=== PATIENT | female | born 1965 | race Caucasian/White ===

== ENCOUNTER 2017-04-22 14:01 | Emergency (ER) | payer MEDICARE, OTHER ==
[2017-04-22 14:17] VITALS: BP 101/50
--- NOTE | 2017-04-22 15:14 | RAD ---
Indication: Right foot pain. 3 views of the right foot demonstrates no fracture. No other bone or joint abnormality is identified. IMPRESSION: No fracture of the right foot is noted.
--- NOTE | 2017-04-22 15:35 | UC ---
Lower Extremity/Ankle HPI - HPI Summary HPI Summary: Fell down the stairs pain in right foot-no specific area of point tenderness - History of Current Complaint Hx Obtained From: Patient ?: No Onset/Duration: Sudden Onset, Lasting Days - 1 Severity Initially: Mild Severity Currently: Mild Pain Intensity: 4 Pain Scale Used: 0-10 Numeric Aggravating Factor(s): Standing, Ambulation Alleviating Factor(s): Rest, Elevation Able to Bear Weight: Yes <Clara Gil - Last Filed: 04/22/17 15:30> <Danitza Brooks - Last Filed: 04/22/17 16:29> - History of Current Complaint Chief Complaint: UCLowerExtremity Stated Complaint: FOOT INJURY Time Seen by Provider: 04/22/17 14:45 - Allergies/Home Medications Allergies/Adverse Reactions: Allergies Allergy/AdvReac Type Severity Reaction Status Date / Time No Known Allergies Allergy Verified 11/04/15 13:37 Home Medications: Home Medications Levothyroxine TAB* [Synthroid 88 MCG TAB*] 88 mcg PO DAILY 04/22/17 [History Confirmed 04/22/17] PMH/Surg Hx/FS Hx/Imm Hx Previously Healthy: No Endocrine History: Hypothyroidism Psychological History: Anxiety, Depression - Surgical History Surgical History: None - Family History Known Family History: Positive: None - Social History Occupation: Disabled Lives: With Family Alcohol Use: None Substance Use Type: None Smoking Status (MU): Never Smoked Tobacco <Clara Gil - Last Filed: 04/22/17 15:30> Review of Systems Constitutional: Negative Skin: Negative Eyes: Negative ENT: Negative Respiratory: Negative Cardiovascular: Negative Gastrointestinal: Negative Genitourinary: Negative Motor: Negative Neurovascular: Negative Musculoskeletal: Arthralgia - right foot Neurological: Negative Psychological: Negative Is Patient Immunocompromised?: No All Other Systems Reviewed And Are Negative: Yes <Clara Gil - Last Filed: 04/22/17 15:30> Physical Exam Triage Information Reviewed: Yes Appearance: Well-Appearing, No Pain Distress, Well-Nourished Vital Signs: Initial Vital Signs Temp 98.8 F 04/22/17 14:12 Pulse 65 04/22/17 14:12 Resp 18 04/22/17 14:12 BP 101/50 04/22/17 14:12 Pulse Ox 100 04/22/17 14:12 Vital Signs Reviewed: Yes Eye Exam: Normal Eyes: Positive: Conjunctiva Clear ENT Exam: Normal ENT: Positive: Normal ENT inspection, Hearing grossly normal. Negative: Nasal congestion, Tonsillar swelling, Tonsillar exudate, Muffled voice, Hoarse voice Dental Exam: Normal Neck exam: Normal Neck: Positive: Supple, Nontender Respiratory Exam: Normal Respiratory: Positive: Chest non-tender, No respiratory distress, No accessory muscle use Cardiovascular Exam: Normal Cardiovascular: Positive: RRR, Pulses Normal, Brisk Capillary Refill Musculoskeletal Exam: Normal Musculoskeletal: Positive: Strength Intact, ROM Intact, No Edema Neurological Exam: Normal Neurological: Positive: Alert, Muscle Tone Normal Psychological Exam: Normal Psychological: Positive: Normal Response To Family Skin Exam: Normal <Clara Gil - Last Filed: 04/22/17 15:30> Vital Signs: Initial Vital Signs Temp 98.8 F 04/22/17 14:12 Pulse 65 04/22/17 14:12 Resp 18 04/22/17 14:12 BP 101/50 04/22/17 14:12 Pulse Ox 100 04/22/17 14:12 <Danitza Brooks - Last Filed: 04/22/17 16:29> Diagnostics - Radiology No standard instances Xray Interpretation: No Acute Changes Radiology Interpretation Completed By: ED Physician, Radiologist <Clara Gil - Last Filed: 04/22/17 15:30> Lower Extremity Course/Dx - Course Course Of Treatment: rice, sen, post op shoe, ibuprofen follow with ortho - Differential Dx/Diagnosis Provider Diagnoses: Right Foot Contusion <Clara Gil - Last Filed: 04/22/17 15:30> Discharge <Clara Gil - Last Filed: 04/22/17 15:30> <Danitza Brooks - Last Filed: 04/22/17 16:29> - Discharge Plan Condition: Stable Disposition: HOME Patient Education Materials: Ibuprofen (By mouth), Foot Contusion (ED), RICE Therapy (ED) Referrals: Jose Perry MD [Primary Care Provider] - If Needed Attestation Statement User Type: Provider - I was available for consult. This patient was seen by the JULI. The patient was not presented to, seen by, or examined by me. -Jonathon <Danitza Brooks - Last Filed: 04/22/17 16:29>
== END 2017-04-22 15:57 | disposition home or self-care (01) ==
LOC: UCEAST 14:01
DX: S90.31XA Contusion of right foot, initial encounter (principal); W10.9XXA Fall (on) (from) unspecified stairs and steps, initial encounter; Y93.9 Activity, unspecified; Y92.9 Unspecified place or not applicable; Y99.9 Unspecified external cause status; E03.9 Hypothyroidism, unspecified
CPT/HCPCS: 99213; G0463

== ENCOUNTER 2017-11-16 14:52 | Emergency (ER) | payer MEDICARE, OTHER ==
[2017-11-16 15:05] VITALS: BP 102/54
--- NOTE | 2017-11-16 15:11 | UC ---
Complaint Female HPI - HPI Summary HPI Summary: 52 y/o female PMHX DM and hypothyroidism presents to the urgent care c/o vaginal discharge w/ itchiness for the past week. Pt also states frequency on urination and she thinks she saw some blood in the urine yesterday. Pt states mild pelvic pressure. Pt denies fever, lower back pain, abdominal pain, N/V/D. Pt has not taking anything to alleviate symptoms. LMP: 2017. Pt states she doesn 't get her period for the past 18 months, so she thins is menopausal. Pt is not sexually active. Pt denies Hx of STD's. - History Of Current Complaint Chief Complaint: UCGU Stated Complaint: PERSONAL Time Seen by Provider: 11/16/17 15:09 Hx Obtained From: Patient Hx Last Menstrual Period: 2016 ?: No - Menopausal Onset/Duration: Gradual Onset, Lasting Weeks - 1, Still Present, Worse Since - yesterday Timing: Constant Severity Initially: Mild Severity Currently: Mild Pain Intensity: 1 - pelvic pressure Pain Scale Used: 0-10 Numeric Character: Not Applicable Aggravating Factor(s): Urination Alleviating Factor(s): Nothing Associated Signs And Symptoms: Positive: Vaginal Discharge. Negative: Genital Swelling, Genital Blisters - Risk Factors Ectopic Risk Factor: Negative - Allergies/Home Medications Allergies/Adverse Reactions: Allergies Allergy/AdvReac Type Severity Reaction Status Date / Time remeron Allergy See Comment Uncoded 11/16/17 15:06 Home Medications: Home Medications Ketoconazole 2 % CREAM (NF) [Nizoral 2% CREAM (NF)] 1 applic Q12HR PRN 11/16/17 [History Confirmed 11/16/17] buPROPion TAB* [Wellbutrin TAB*] 100 mg PO DAILY 11/16/17 [History Confirmed ] PMH/Surg Hx/FS Hx/Imm Hx Previously Healthy: Yes Endocrine History: Diabetes, Hypothyroidism Psychological History: Anxiety, Depression, Post Traumatic Stress Disorder - Surgical History Surgical History: None - Family History Known Family History: Positive: Hypertension - Social History Occupation: Employed Full-time Lives: With Family Alcohol Use: None Substance Use Type: None Smoking Status (MU): Never Smoked Tobacco Have You Smoked in the Last Year: No Review of Systems Constitutional: Negative Skin: Negative Eyes: Negative ENT: Negative Respiratory: Negative Cardiovascular: Negative Gastrointestinal: Negative Genitourinary: Frequency, Vaginal/Penile Itching, Vaginal/Penile Discharge Motor: Negative Neurovascular: Negative Musculoskeletal: Negative Neurological: Negative Psychological: Negative Is Patient Immunocompromised?: No All Other Systems Reviewed And Are Negative: Yes Physical Exam - Summary Physical Exam Summary: PHYSICAL EXAMINATION: Vital signs: reviewed General: well developed, well nourished female sitting in the examining table w /o any acute distress. Head: Normocephalic, no lesions. Eyes: PERRLA, EOM's full, conjunctiva clear, fundi grossly normal. Ears: EAC's clear, TM's normal. Nose: Mucosa normal, no obstruction. Throat: Clear, no exudates, no lesions. Neck: Supple, no masses, no thyromegaly, no bruits. Chest: Lungs clear, no rales, no rhonchi, no wheezes. Heart: RR, no murmurs, no rubs, no gallops. Abdomen: Soft, no tenderness, no masses, BS normal. : Normal, no lesions, no discharge, no hernias noted. Pelvic: I was assisted by nurse Ronel. External genitalia within normal limits. There is no lesions there is no masses noted. Speculum exam: unable to perform since Pt is afraid it will cause her pain since she hasn't have sexual intercourse in a long time. entrance of vagina w/ white vaginal discharge and mild erythema. Rectal: No lesions, no hemorrhoids, Back: Normal curvature, no tenderness. Extremities: FROM, no deformities, no edema, no erythema. Neuro: Physiological, no localizing findings. Skin: Normal, no rashes, no lesions noted. Triage Information Reviewed: Yes Vital Signs: Initial Vital Signs Temp 98.3 F 11/16/17 14:56 Pulse 63 11/16/17 14:56 Resp 16 11/16/17 14:56 BP 102/54 11/16/17 14:56 Pulse Ox 100 11/16/17 14:56 Complaint Female Dx - Course Course Of Treatment: 52 y/o female PMHX DM and hypothyroidism presents to the urgent care c/o vaginal discharge w/ itchiness for the past week. Pt also states frequency on urination and she thinks she saw some blood in the urine yesterday. Pt states mild pelvic pressure. Pt denies fever, lower back pain, abdominal pain, N/V/D. Pt has not taking anything to alleviate symptoms. LMP: 2017. Pt states she doesn't get her period for the past 18 months, so she thins is menopausal. Pt is not sexually active. Pt denies Hx of STD's. Hx obtained. Pelvic exam: I was assisted by nurse Ronel. External genitalia within normal limits. There is no lesions there is no masses noted. Speculum exam: unable to perform since Pt is afraid it will cause her pain since she hasn't have sexual intercourse in a long time. entrance of vagina w/ white vaginal discharge and mild erythema on examination. UA:negative. Pt Rx fluconazole and Metrogel vaginal cream for Vulvovaginal candidiasis and BV due to her white vaginal discharge and PMHX of DM. Pt understood and agreed with plan of care. - Differential Dx/Diagnosis Differential Diagnosis/HQI/PQRI: Cervicitis, Pelvic Inflammatory Disease, Renal Colic, Sexually Transmitted Disease, Ureteral Stone, Urinary Tract Infection Provider Diagnoses: 1- Vaginosis Discharge - Sign-Out/Discharge Documenting (check all that apply): Discharge/Admit/Transfer - D/c - Discharge Plan Condition: Stable Disposition: HOME Prescriptions: Fluconazole [Fluconazole 150 mg tab] 150 mg PO ONCE #1 tab metroNIDAZOLE VAGINAL 0.75%* 1 applic VAGINAL BEDTIME #1 tube Patient Education Materials: Bacterial Vaginosis (ED), Yeast Infection (ED) Referrals: Jose Perry MD [Primary Care Provider] - 3 Days Additional Instructions: 1- Please take fluconazole PO as directed 2- Use Metrogel as directed to alleviate Vaginosis 3--If not improvement of symptoms please return to the urgent care or f/u with your [facility]AD[facility]AKER for further treatment - Billing Disposition and Condition Condition: STABLE Disposition: Home
== END 2017-11-16 16:12 | disposition home or self-care (01) ==
LOC: UCEAST 14:52
DX: N76.0 Acute vaginitis (principal); E11.9 Type 2 diabetes mellitus without complications; E03.9 Hypothyroidism, unspecified; F41.9 Anxiety disorder, unspecified; F32.9 Major depressive disorder, single episode, unspecified; F43.10 Post-traumatic stress disorder, unspecified; Z82.49 Family history of ischemic heart disease and other diseases of the circulatory system
CPT/HCPCS: 81003; 99212; G0463

== ENCOUNTER 2017-11-24 20:30 | Emergency (ER) | payer MEDICARE, OTHER ==
--- OUTSIDE RECORDS SUMMARY | 2017-11-24 20:39 | XMS REPORT ---
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 Active Onset: 05/21/2006 Anxiety state Jose Perry M.D. Active Onset: 08/10/2008 Allergic rhinitis Jose Perry M.D. Active Onset: 10/24/2011 Neck pain Jose Perry M.D. Active Onset: 09/23/2012 Bronchitis Jose Perry M.D. Active Onset: 01/28/2014 Acute bronchitis Jose Perry M.D. Active Onset: 04/07/2015 Chronic fatigue syndrome Jose Perry M.D. Active Onset: 06/10/2017 Hypothyroidism Jose Perry M.D. Active Family History Date Family Member(s) Problem(s) Comments Mother Depression Social History Type Date Description Comments Cigarette Use Nonsmoker ETOH Use Denies alcohol use Smoking Patient has never smoked Daily Caffeine Does not consume caffeine Allergies, Adverse Reactions, Alerts Date Description Reaction Status Severity Comments 01/08/2011 Remeron irritability active 12/28/2010 NKDA inactive Medications Medication Date Status Form Strength Qnty SIG Indications Ordering Provider Levothyroxine 10/04 Active Tablets 100mcg 42tab Take 1 E06.3 Jose A. s Tablet By Darjoe, Mouth M.D. Every Day Lac-Hydrin 09/13 Active Lotion 12% 1bott apply le once a Vicky, bee as M.DKatina directed Buspar 04/17 Active Tablets 10mg 135ta 1-1/2 tid Jose bs Celia Perry Lamictal 09/10 Active Tablets 200mg 60tab Take one Jose s Tablets Darjoe, By Mouth M.D. Every Day Sertraline HCL Active Tablets 100mg 30tab 2 po qd Unknown / s Bupropion HCL Active Tablets 100mg 1 by Unknown / mouth every day Levothyroxine 04/16 Hx Tablets 88mcg 42tab take 1 E06.3 Jose A. Sodium s tablet by Vicky, - mouth M.D. 10/04 every Levothyroxine 11/08 Hx Tablets 75mcg 42tab Take 1 E06.3 Jose A. Sodium s Tablet By Vicky, - Mouth M.D. 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 s mouth Darlow, - twice a M.D. Valacyclovir HCL 09/14 Hx Tablets 1gm 21tab 1 by 709.9 Jose A. s mouth Darlow, - three M.D. 09/21 times day Sulfamethoxazole/ 09/14 Hx Tablets 800-160mg 20tab 1 by 709.9 Jose A. Trimethoprim s mouth Darlow, - twice a M.D. Clarithromycin ER 01/28 Hx Tablets ER 500mg 14tab 2 po qd 466.0 Jose A. 24HR s Darjoe, - M.D. 02/04 Advair Diskus 07/15 Hx Aerosol 100-50mcg 1inha inhale 1 Jesika /Dose ler puff [facility], - daily [facility] 07/14 Cheratussin ac 07/15 Hx Syrup 100-10mg/ 150ml 5 ml 786.2 Jesika 5ML every 12 [facility], - hrs prn [facility] 01/28 cough Methylprednisolon 07/15 Hx Tablets 4mg 1pack take as 786.2 Jesika e directed [facility], - [facility] 01/28 Proair HFA 07/15 Hx Aerosol 108(90Bas 1unit 2 puffs 786.2 e) s tid x 2 Alex, - mcg/Act weeks [facility] 04/28 Spiriva 07/09 Hx Capsules 18mcg 30cap inhale 490 Jose A. Handihale s contents Darjoe, - one of M.D. 01/28 by mouth daily Levofloxacin 07/07 Hx Tablets 500mg 10tab 1 po qd 466.0 Jose A. s x10 days Darlow, - M.D. 07/17 Azithromycin 07/06 Hx Tablets 500mg 5tabs 1 po qd x 466.0 Jose A. 5 days Darlow, - M.D. 07/07 Abilify 07/06 Hx Tablets 5mg 1/2 po qd Doctor - 01/28 Meloxicam 03/05 Hx Tablets 7.5mg 40tab take 1 784.0 Jose A. s tablet Vicky, - bid prn M.DKatina 07/06 headache Augmentin 01/23 Hx Tablets 875-125mg 20tab 1 po bid 461.9 s x 10 days [facility] - 02/02 Flonase 01/23 Hx Suspension 50mcg/Act 1unit 2 sprays 461.9 s in each [facility] - nostril 07/06 Spiriva 10/02 Hx Capsules 18mcg 30cap inhale 490 Jose A. Handihale s contents Vicky, - tesha of Celia 01/23 capsule by mouth daily Azithromycin 10/02 Hx Tablets 500mg 5tabs 1 po qd x 490 Jose A. 5 days Edmund Perry M.D. 10/07 Levofloxacin 09/23 Hx Tablets 500mg 10tab 1 po qd 490 Jose A. s x10 days Edmund Perry M.D. 10/02 Lac-Hydrin 08/25 Hx Lotion 12% 1bott apply qd le as Edmund Perry M.D. 01/23 Fexofenadine HCL 08/25 Hx Tablets 180mg 30tab 1 po qd 460 Jose A. s Edmund Perry M.D. 01/23 Physical Therapy 10/23 Hx treatment 723.1 Jose A. and Edmund Perry M.D. 11/04 n neck pain Orphenadrine 10/23 Hx Tablets ER 100mg 30tab 1 bid prn 723.1 Jose A. Citrate ER 12HR s Edmund Perry M.D. 11/04 Nabumetone 10/23 Hx Tablets 500mg 30tab 1 po bid 723.1 Jose A. s prn pain Edmund Perry M.D. 11/04 Sertraline HCL 01/15 Hx Tablets 25mg 100ta 1 po qam, 311 Jose bs can Edmund Perry increase M.DKatina 10/23 to 2 po /2011 qd after 2 weeks if necessary Lexapro 01/08 Hx Tablets 10mg 90tab 1 po qd 311 Jose A Edmund Salazar M.D. 01/15 Remeron 12/11 Hx Tablets 15mg 30tab 1 po qd 311 Jose Edmund Salazar M.D. 01/08 Lamictal 07/03 Hx Tablets 50mg 90tab 1-1/2 qd Jose s Edmund Shahid M.D. 07/10 total daily dose: 375 mg qd Abilify 05/22 Hx Tablets 15mg 1/2 po qd Jose Edmund Perry M.D. 07/03 Abilify 04/17 Hx Tablets 5mg 1 po qd 311 Jose Edmund Perry M.D. 05/22 Amoxicillin 12/12 Hx Tablets 875mg 20tab 1 po bid 460 Jose A Edmund Salazar M.D. 12/22 Fexofenadine HCL 12/12 Hx Tablets 180mg 30tab 1 po qd 460 Jose A. Edmund Salazar M.D. 12/22 Abilify 11/07 Hx Tablets 2mg 1 po qd 311 Jose A Edmund Perry M.D. 04/17 Abilify 04/04 Hx Tablets 2mg 30tab 1 po qd 311 Jose A. Edmund Salazar M.D. 11/07 Buspar 11/28 Hx Tabs 15mg 180ta take one Joes bs tablet by Vicky - mouth M.DKatina 04/17 twice A day Prozac 11/28 Hx Caps 40mg 90cap Take One Jose s Capsule Edmund Perry By Mouth M.DKatina 12/11 Every Day /2010 Relafen 09/27 Hx Tablets 500mg 30tab 1 po bid 724.5 Jose A. Edmund Salazar M.D. 10/07 Ativan 08/10 Hx Tablets 0.5mg 2tabs 1 po 1 626.9 Jose A hour Vicky, - before M.D. 09/23 Fexofenadine HCL 09/19 Hx Tablets 180mg 30tab take 1 s tablet Vicky, - every day M.D. 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 s Edmund Perry.Floyd 03/25 Clarinex 01/31 Hx Tablets 5mg 30tab 1 po qd Jose A. Edmund Salazar M.D. 09/19 Entex-LA 01/21 Hx 20uni 1 po bid 381.81 Jose A. ts prn ear Edmund Perry congestio Celia 01/31 n Lamictal 01/08 Hx Tablets 150mg 225ta 2-/ qd Jose A. bs Edmund Perry M.D. 11/04 Lamictal 03/28 Hx Tablets 100mg 45tab 1 06/04 Jose A. s tabs Edmund Taylor.Floyd 09/10 Medrol Dosepack 01/23 Hx 4mg 1unit as Jose A. s Directed Edmund Perry M.D. 02/04 Clarinex 01/23 Hx Tablets 5mg 7tabs 1 PO qd Jose A. Edmund Perry.Floyd 02/02 Prozac 09/28 Hx Capsules 40mg 60cap 2 po qd Jose A. s Edmund Perry M.D. 09/28 Prozac 09/28 Hx Capsules 20mg 180ca 2 po qd Jose A. Edmund Prather M.D. 11/28 Norflex 09/28 Hx Tablets 100mg 20tab 1 PO bid Jose A. Edmund Salazar M.D. 11/16 Naproxen 09/28 Hx Tablets 500mg 20tab 1 bid Jose A. s Edmund Perry M.D. 10/18 Buspar 06/05 Hx 10mg 270un 1-06/04 bid Jose A. Edmund Houser M.D. 11/28 Prozac 06/08 Hx 20mg [address] [place] Doctor - 09/28 Prozac 01/19 Hx 20mg 1qod, Testing alternati Doctor - ng 06/08 2qod Naprosyn 04/20 Hx Tabs 500mg 30tab 1 bid Jose A. s With Food Edmund Perry M.D. 05/04 Physical Therapy 04/20 Hx For Low Jose A. Back Pain Edmund Perry M.D. 04/21 Lamictal 01/06 Hx 300mg 450un 1.5 tab q Jose A. Edmund Houser am, M.D. 03/31 Prozac 01/06 Hx 25mg 1 qd [facility] 01/19 Serqual 01/06 Hx 100mg 1 PO QHS [facility] 01/19 Klonopin 01/06 Hx 0.5 0unit 1 PO Up s To Doctor - Five/Day 08/01 Norflex 01/06 Hx 100mg 30uni 1 PO bid Jose A. ts Edmund Perry M.D. 01/14 Naprosyn 01/06 Hx Tabs 500mg 30tab 1 bid Jose A. s With Edmund Huntley M.D. 01/20 Celexa 03/18 Hx Tabs 40mg 0tabs 1 PO qd [facility] 01/06 Nexium 03/18 Hx 40mg 0unit 1 qd s [facility] 01/06 Klonopin 03/18 Hx 2.5mg 0unit qd s [facility] 01/06 Abilify 00 Hx Tablets 2mg 1 by Unknown /0000 mouth - every day 09/02 Immunizations CPT Code Status Date Vaccine Lot # [id number] Given 03/07/2017 Influenza Vac, Quadriv[place], [place] [id number] Given 04/21/2015 Influenza Vac, Quadrivalent, Slit Virus, Im [id number] Given 04/28/2014 Split Influenza Medicare: Fluzone [id number] Given 03/05/2013 Split Influenza Medicare: Fluzone [id number] Given 03/05/2013 Preservative free flu 3 yrs+ and older [id number] Given 06/12/2012 Split Influenza Medicare: Fluvirin [id number] Given 06/12/2012 DO Not Use Split Influenza Virus Vaccine [id number] Vital Signs Date Vital Result Comment 11/21/2017 BP Systolic 100 mmHg BP Diastolic 60 mmHg Heart Rate 68 /min Body Temperature 98.2 F Respiratory Rate 16 /min Height 67 inches 5'7" Weight 155.00 lb BMI (Body Mass Index) 24.3 kg/m2 09/02/2017 BP Systolic 100 mmHg BP Diastolic 66 mmHg Heart Rate 64 /min Body Temperature 99.0 F Respiratory Rate 16 /min Height 67 inches 5'7" Weight 155.00 lb BMI (Body Mass Index) 24.3 kg/m2 06/10/2017 BP Systolic 90 mmHg BP Diastolic 60 mmHg Heart Rate 60 /min Body Temperature 98.8 F Respiratory Rate 16 /min Height 67 inches 5'7" Weight 149.00 lb BMI (Body Mass Index) 23.3 kg/m2 11/27/2016 BP Systolic 88 mmHg BP Diastolic 62 mmHg Heart Rate 68 /min Body Temperature 98.1 F Respiratory Rate 16 /min Height 67 inches 5'7" Weight 147.00 lb BMI (Body Mass Index) 23.0 kg/m2 06/05/2016 BP Systolic 100 mmHg BP Diastolic 64 mmHg Heart Rate 64 /min Body Temperature 98.4 F Respiratory Rate 14 /min O2 % BldC Oximetry 98 % Height 67 inches 5'7" Weight 156.00 lb BMI (Body Mass Index) 24.4 kg/m2 12/22/2015 BP Systolic 100 mmHg BP Diastolic 64 mmHg Heart Rate 60 /min Body Temperature 98.6 F Respiratory Rate 12 /min Height 67 inches 5'7" Weight 145.00 lb BMI (Body Mass Index) 22.7 kg/m2 12/07/2015 BP Systolic 90 mmHg BP Diastolic 60 mmHg Heart Rate 68 /min Body Temperature 97.0 F Respiratory Rate 12 /min Height 67 inches 5'7" Weight 145.00 lb BMI (Body Mass Index) 22.7 kg/m2 09/14/2015 BP Systolic 100 mmHg BP Diastolic 50 mmHg Heart Rate 64 /min Body Temperature 97.8 F Respiratory Rate 12 /min Height 67 inches 5'7" Weight 135.00 lb BMI (Body Mass Index) 21.1 kg/m2 04/07/2015 BP Systolic 110 mmHg BP Diastolic 64 mmHg Heart Rate 68 /min Body Temperature 97.5 F Respiratory Rate 14 /min Height 67 inches 5'7" Weight 152.00 lb BMI (Body Mass Index) 23.8 kg/m2 09/14/2014 BP Systolic 104 mmHg BP Diastolic 62 mmHg Heart Rate 68 /min Body Temperature 97.4 F Respiratory Rate 14 /min Height 67 inches 5'7" Weight 156.00 lb BMI (Body Mass Index) 24.4 kg/m2 08/26/2014 BP Systolic 102 mmHg BP Diastolic 60 mmHg Heart Rate 68 /min Body Temperature 98.2 F Respiratory Rate 14 /min Height 67 inches 5'7" Weight 156.00 lb BMI (Body Mass Index) 24.4 kg/m2 04/28/2014 BP Systolic 110 mmHg BP Diastolic 60 mmHg Heart Rate 64 /min Body Temperature 98.6 F Respiratory Rate 12 /min Height 67 inches 5'7" Weight 156.00 lb BMI (Body Mass Index) 24.4 kg/m2 01/28/2014 BP Systolic 104 mmHg BP Diastolic 60 mmHg Heart Rate 68 /min Body Temperature 98.0 F Respiratory Rate 16 /min O2 % BldC Oximetry 98 % Height 67 inches 5'7" Weight 159.00 lb BMI (Body Mass Index) 24.9 kg/m2 07/15/2013 BP Systolic 104 mmHg BP Diastolic 60 mmHg Heart Rate 84 /min Body Temperature 98.0 F Height 67 inches 5'7" 07/06/2013 BP Systolic 100 mmHg BP Diastolic 50 mmHg Heart Rate 77 /min Body Temperature 99.1 F Respiratory Rate 16 /min O2 % BldC Oximetry 97 % Height 67 inches 5'7" Weight 153.00 lb BMI (Body Mass Index) 24.0 kg/m2 03/30/2013 BP Systolic 98 mmHg BP Diastolic 60 mmHg Heart Rate 64 /min Body Temperature 97.6 F Respiratory Rate 16 /min Height 67 inches 5'7" Weight 148.00 lb BMI (Body Mass Index) 23.2 kg/m2 03/05/2013 BP Systolic 100 mmHg BP Diastolic 64 mmHg Heart Rate 64 /min Body Temperature 97.9 F Respiratory Rate 16 /min Height 67 inches 5'7" Weight 147.00 lb BMI (Body Mass Index) 23.0 kg/m2 01/23/2013 BP Systolic 100 mmHg BP Diastolic 66 mmHg Heart Rate 72 /min Body Temperature 97.2 F Respiratory Rate 15 /min Height 67 inches 5'7" Weight 145.00 lb BMI (Body Mass Index) 22.7 kg/m2 10/02/2012 BP Systolic 96 mmHg BP Diastolic 60 mmHg Heart Rate 74 /min Body Temperature 99.2 F Respiratory Rate 16 /min O2 % BldC Oximetry 98 % Height 67 inches 5'7" Weight 146.00 lb BMI (Body Mass Index) 22.9 kg/m2 09/23/2012 BP Systolic 96 mmHg BP Diastolic 50 mmHg Heart Rate 65 /min Body Temperature 97.6 F Respiratory Rate 14 /min O2 % BldC Oximetry 97 % Height 67 inches 5'7" Weight 145.00 lb BMI (Body Mass Index) 22.7 kg/m2 08/25/2012 BP Systolic 92 mmHg BP Diastolic 50 mmHg Heart Rate 72 /min Body Temperature 98.4 F Respiratory Rate 16 /min Height 67 inches 5'7" Weight 145.00 lb BMI (Body Mass Index) 22.7 kg/m2 10/24/2011 BP Systolic 90 mmHg BP Diastolic 50 mmHg Heart Rate 64 /min Body Temperature 98.3 F Respiratory Rate 16 /min Height 67 inches 5'7" Weight 148.00 lb BMI (Body Mass Index) 23.2 kg/m2 06/12/2011 BP Systolic 100 mmHg BP Diastolic 52 mmHg Heart Rate 68 /min Body Temperature 98.0 F Respiratory Rate 16 /min Height 67 inches 5'7" Weight 148.00 lb BMI (Body Mass Index) 23.2 kg/m2 01/08/2011 BP Systolic 92 mmHg BP Diastolic 52 mmHg Heart Rate 74 /min Body Temperature 98.1 F Respiratory Rate 16 /min Height 67 inches 5'7" Weight 158.00 lb BMI (Body Mass Index) 24.7 kg/m2 12/11/2010 BP Systolic 100 mmHg BP Diastolic 64 mmHg Heart Rate 64 /min Body Temperature 97.5 F Respiratory Rate 12 /min Height 67 inches 5'7" Weight 155.00 lb BMI (Body Mass Index) 24.3 kg/m2 07/03/2010 BP Systolic 90 mmHg BP Diastolic 58 mmHg Heart Rate 80 /min Body Temperature 97.0 F Respiratory Rate 12 /min Height 67 inches 5'7" Weight 158.00 lb BMI (Body Mass Index) 24.7 kg/m2 05/22/2010 BP Systolic 90 mmHg BP Diastolic 58 mmHg Heart Rate 60 /min Body Temperature 97.8 F Respiratory Rate 16 /min Height 67 inches 5'7" Weight 156.00 lb BMI (Body Mass Index) 24.4 kg/m2 04/17/2010 BP Systolic 100 mmHg BP Diastolic 58 mmHg Heart Rate 64 /min Body Temperature 98.4 F Respiratory Rate 12 /min Height 67 inches 5'7" Weight 150.00 lb BMI (Body Mass Index) 23.5 kg/m2 03/22/2010 BP Systolic 104 mmHg BP Diastolic 58 mmHg Heart Rate 64 /min Body Temperature 98.4 F Respiratory Rate 12 /min Height 67 inches 5'7" Weight 149.00 lb BMI (Body Mass Index) 23.3 kg/m2 12/14/2009 BP Systolic 110 mmHg BP Diastolic 70 mmHg Heart Rate 76 /min Body Temperature 98.1 F Respiratory Rate 16 /min O2 % BldC Oximetry 96 % Height 67 inches 5'7" Weight 144.00 lb BMI (Body Mass Index) 22.6 kg/m2 12/12/2009 BP Systolic 100 mmHg BP Diastolic 60 mmHg Heart Rate 68 /min Body Temperature 98.3 F Respiratory Rate 16 /min O2 % BldC Oximetry 96 % Height 67 inches 5'7" Weight 146.00 lb BMI (Body Mass Index) 22.9 kg/m2 11/07/2009 BP Systolic 108 mmHg BP Diastolic 60 mmHg Heart Rate 64 /min Body Temperature 98.4 F Respiratory Rate 16 /min Height 67 inches 5'7" Weight 145.00 lb BMI (Body Mass Index) 22.7 kg/m2 04/04/2009 BP Systolic 100 mmHg BP Diastolic 58 mmHg Heart Rate 72 /min Body Temperature 97.8 F Respiratory Rate 16 /min Height 67 inches 5'7" Weight 148.00 lb BMI (Body Mass Index) 23.2 kg/m2 12/20/2008 BP Systolic 104 mmHg BP Diastolic 64 mmHg Heart Rate 64 /min Body Temperature 97.4 F Respiratory Rate 16 /min Weight 146.00 lb 11/04/2008 BP Systolic 100 mmHg BP Diastolic 62 mmHg Heart Rate 64 /min Body Temperature 98.6 F Respiratory Rate 16 /min Weight 145.00 lb 09/27/2008 BP Systolic 98 mmHg BP Diastolic 50 mmHg Heart Rate 56 /min Body Temperature 98.8 F Respiratory Rate 16 /min Weight 144.00 lb 08/10/2008 BP Systolic 92 mmHg BP Diastolic 64 mmHg Heart Rate 64 /min Body Temperature 98.9 F Respiratory Rate 12 /min 11/17/2007 BP Systolic 92 mmHg BP Diastolic 60 mmHg Heart Rate 64 /min Body Temperature 99.1 F Respiratory Rate 16 /min Height 67 inches 5'7" Weight 144.00 lb BMI (Body Mass Index) 22.6 kg/m2 08/05/2007 BP Systolic 96 mmHg BP Diastolic 60 mmHg Heart Rate 66 /min Body Temperature 98.8 F Height 67 inches 5'7" Weight 144.00 lb BMI (Body Mass Index) 22.6 kg/m2 03/25/2007 BP Systolic 90 mmHg BP Diastolic 50 mmHg Heart Rate 68 /min Height 67 inches 5'7" Weight 140.00 lb BMI (Body Mass Index) 21.9 kg/m2 10/22/2006 BP Systolic 92 mmHg BP Diastolic 50 mmHg Heart Rate 68 /min Respiratory Rate 16 /min Height 67 inches 5'7" Weight 138.00 lb BMI (Body Mass Index) 21.6 kg/m2 09/24/2006 BP Systolic 122 mmHg BP Diastolic 78 mmHg Heart Rate 64 /min Body Temperature 98.2 F Height 67 inches 5'7" Weight 140.00 lb BMI (Body Mass Index) 21.9 kg/m2 09/05/2006 BP Systolic 92 mmHg BP Diastolic 60 mmHg Heart Rate 72 /min Respiratory Rate 16 /min Height 67 inches 5'7" Weight 138.00 lb BMI (Body Mass Index) 21.6 kg/m2 08/05/2006 BP Systolic 98 mmHg BP Diastolic 70 mmHg Heart Rate 64 /min Height 67 inches 5'7" Weight 142.00 lb BMI (Body Mass Index) 22.2 kg/m2 05/21/2006 BP Systolic 112 mmHg BP Diastolic 60 mmHg Heart Rate 62 /min Respiratory Rate 16 /min Height 67 inches 5'7" Weight 142.00 lb BMI (Body Mass Index) 22.2 kg/m2 01/21/2006 BP Systolic 88 mmHg BP Diastolic 54 mmHg Heart Rate 72 /min Height 67 inches 5'7" Weight 134.00 lb BMI (Body Mass Index) 21.0 kg/m2 09/10/2005 BP Systolic 90 mmHg BP Diastolic 50 mmHg Heart Rate 64 /min Height 67 inches 5'7" Weight 143.00 lb BMI (Body Mass Index) 22.4 kg/m2 06/19/2005 BP Systolic 88 mmHg BP Diastolic 50 mmHg Heart Rate 64 /min Height 67 inches 5'7" Weight 140.00 lb BMI (Body Mass Index) 21.9 kg/m2 03/19/2005 BP Systolic 96 mmHg BP Diastolic 60 mmHg Heart Rate 68 /min Height 67 inches 5'7" Weight 143.00 lb BMI (Body Mass Index) 22.4 kg/m2 01/23/2005 BP Systolic 122 mmHg BP Diastolic 72 mmHg Heart Rate 72 /min Body Temperature 97.0 F Respiratory Rate 18 /min Height 67 inches 5'7" Weight 134.00 lb BMI (Body Mass Index) 21.0 kg/m2 09/28/2004 BP Systolic 88 mmHg BP Diastolic 56 mmHg Heart Rate 68 /min Respiratory Rate 12 /min Height 67 inches 5'7" Weight 142.00 lb BMI (Body Mass Index) 22.2 kg/m2 08/01/2004 BP Systolic 80 mmHg BP Diastolic 54 mmHg Heart Rate 76 /min Height 67 inches 5'7" Weight 133.00 lb BMI (Body Mass Index) 20.8 kg/m2 06/05/2004 BP Systolic 90 mmHg BP Diastolic 60 mmHg Heart Rate 68 /min Height 67 inches 5'7" Weight 133.00 lb BMI (Body Mass Index) 20.8 kg/m2 08/11/2003 BP Systolic 84 mmHg BP Diastolic 58 mmHg Heart Rate 72 /min Body Temperature 99.9 F Height 67 inches 5'7" Weight 128.00 lb BMI (Body Mass Index) 20.0 kg/m2 06/08/2003 BP Systolic 102 mmHg BP Diastolic 70 mmHg Body Temperature 98.5 F Height 67 inches 5'7" Weight 128.00 lb BMI (Body Mass Index) 20.0 kg/m2 01/19/2003 BP Systolic 84 mmHg BP Diastolic 40 mmHg Heart Rate 64 /min Height 67 inches 5'7" Weight 123.00 lb BMI (Body Mass Index) 19.3 kg/m2 12/14/2002 BP Systolic 100 mmHg BP Diastolic 60 mmHg Heart Rate 64 /min Height 67 inches 5'7" Weight 125.00 lb BMI (Body Mass Index) 19.6 kg/m2 04/20/2002 BP Systolic 108 mmHg BP Diastolic 60 mmHg Heart Rate 60 /min Height 67 inches 5'7" Weight 158.00 lb BMI (Body Mass Index) 24.7 kg/m2 01/06/2002 BP Systolic 102 mmHg BP Diastolic 68 mmHg Heart Rate 74 /min Height 67 inches 5'7" Weight 167.00 lb BMI (Body Mass Index) 26.2 kg/m2 03/18/2001 BP Systolic 102 mmHg BP Diastolic 68 mmHg Heart Rate 64 /min Body Temperature 98.1 F Height 67 inches 5'7" Weight 161.00 lb BMI (Body Mass Index) 25.2 kg/m2 Results Test Date Test Result H/L Range Note Poc Urinalysis 11/16/2017 Poc Glucose, Urine Negative Negative Poc Bilirubin, Urine Negative Negative Poc Ketone, Urine Negative Negative Poc Specific Tunas, Urine <=1.005 Low 1.010-1.030 Poc Blood, Urine Negative Negative Poc pH, Urine 5.5 5-9 Poc Protein, Urine Negative Negative Poc Urobilinogen, Urine 0.2 Negative Poc Nitrite, Urine Negative Negative Poc Leukocytes, Urine Negative Negative Poc Color, Urine Yellow Poc Clarity, Urine Clear 1 Comp Metabolic Panel 10/11/2017 Sodium 137 mmol/L Low 139-145 Potassium 4.6 mmol/L 3.5-5.0 Chloride 100 mmol/L Low 101-111 Co2 Carbon Dioxide 31 mmol/L 22-32 Anion Gap 6 mmol/L 2-11 Glucose 77 mg/dL 70-100 Blood Urea Nitrogen 7 mg/dL 6-24 Creatinine 0.75 mg/dL 0.51-0.95 BUN/Creatinine Ratio 9.3 8-20 Calcium 9.6 mg/dL 8.6-10.3 Total Protein 6.9 g/dL 6.4-8.9 Albumin 4.5 g/dL 3.2-5.2 Globulin 2.4 g/dL 2-4 Albumin/Globulin Ratio 1.9 1-3 Total Bilirubin 0.30 mg/dL 0.2-1.0 Alkaline Phosphatase 66 U/L 34-104 Alt 11 U/L 7-52 Ast 17 U/L 13-39 Egfr Non- 81.5 >60 Egfr 104.8 >60 2 Laboratory test finding 10/11/2017 C Reactive Protein 1.39 mg/L < 5.00 3 CBC Auto Diff 10/11/2017 White Blood Count 3.4 10^3/uL Low 3.5-10.8 Red Blood Count 4.03 10^6/uL 4.0-5.4 Hemoglobin 12.7 g/dL 12.0-16.0 Hematocrit 37 % 35-47 Mean Corpuscular Volume 91 fL 80-97 Mean Corpuscular Hemoglobin 32 pg High 27-31 Mean Corpuscular HGB Conc 35 g/dL 31-36 Red Cell Distribution Width 14 % 10.5-15 Platelet Count 170 10^3/uL 150-450 Mean Platelet Volume 7.9 um3 7.4-10.4 Abs Neutrophils 1.8 10^3/uL 1.5-7.7 Abs Lymphocytes 1.3 10^3/uL 1.0-4.8 Abs Monocytes 0.2 10^3/uL 0-0.8 Abs Eosinophils 0.1 10^3/uL 0-0.6 Abs Basophils 0.1 10^3/uL 0-0.2 Abs Nucleated RBC 0 10^3/uL Granulocyte % 53.8 % 38-83 Lymphocyte % 36.9 % 25-47 Monocyte % 5.6 % 0-7 Eosinophil % 1.9 % 0-6 Basophil % 1.8 % 0-2 Nucleated Red Blood Cells % 0.1 Laboratory test finding 10/11/2017 Erythrocyte Sed Rate 14 mm/Hr 0-30 Hepatitis C Antibody Nonreactive Nonreactive HIV 1/2 AB Evaluation 10/11/2017 HIV 1 2 Antibody Nonreactive Nonreactive 4 CBC Electronic Fma 08/08/2017 WBC 3.5 x10^3/UL Low 4.0-10.0 5 RBC 3.89 x10^6/UL Low 3.93-6.00 HGB 12.2 g/dL 12.0-17.0 HCT 36 % 35-50 MCV 93.6 fL 80.0-95.0 MCH 31.4 pg 25.6-32.2 MCHC 33.5 g/dL 32.2-36.0 RDW-CV 13.6 % 11.6-14.4 PLT 190 x10^3/UL 163-400 MPV 9.3 fL Low 9.4-12.4 Dannie# 1.83 x10^3/UL 1.56-6.13 Lymph# 1.31 x10^3/UL 1.18-3.74 Rosebud# 0.25 x10^3/UL 0.24-0.82 Eos # 0.1 x10^3/UL 0.0-0.5 Baso # 0.04 x10^3/UL 0.01-0.08 Dannie% 52.7 % 34.0-70.0 Lymph % 37.6 % 20.0-52.0 Rosebud% 7.2 % 5.0-12.0 Eos% 1.4 % 0.7-7.0 Baso% 1.1 % 0.1-1.2 Laboratory test finding 08/08/2017 TSH 5.56 mIU/L 0.50-6.00 Comprehensive Metabolic Prof 08/08/2017 Sodium 140 mEq/L 134-149 Potassium 4.1 mEq/L 3.6-5.5 Chloride 102 mEq/L 94-112 Carbon Dioxide 29 mEq/L 21-32 Glucose 80 mg/dL 70-105 BUN 7 mg/dL 6-26 Creatinine 0.7 mg/dL 0.6-1.4 BUN/Creat Ratio 10.0 CALC 8.0-36.0 Calcium 9.6 mg/dL 8.6-10.2 Total Protein 7.0 g/dL 6.4-8.3 Albumin 4.5 g/dL 3.8-5.5 Globulin 2.5 g/dL 2.0-4.8 A/G Ratio 1.8 CALC 0.6-2.3 Alk. Phosphatase 67 U/L 30-110 Alt (SGPT) 21 U/L 7-35 Ast (Sgot) 19 U/L 5-34 Total Bilirubin 0.3 mg/dL 0.2-1.3 GFR Non- >60 ml/min/1.73m^ >=60 GFR >60 ml/min/1.73m^ >=60 Laboratory test 07/10/2017 Surgical Pathology SEE RESULT 6, 7 finding BELOW Laboratory test 06/10/2017 TSH 4.64 mIU/L 0.50-6.00 finding Laboratory test 05/21/2017 Surgical Pathology SEE RESULT 8, 9 finding BELOW Laboratory test 04/11/2017 TSH 7.37 mIU/L High 0.50-6.00 10 finding Laboratory test 01/10/2017 TSH 4.46 mIU/L 0.50-6.00 finding Comprehensive 11/27/2016 Sodium 136 mEq/L 134-149 Metabolic Prof Potassium 4.3 mEq/L 3.6-5.5 Chloride 97 mEq/L 94-112 Carbon Dioxide 28 mEq/L 21-32 Glucose 86 mg/dL 70-105 BUN 7 mg/dL 6-26 Creatinine 0.8 mg/dL 0.6-1.4 BUN/Creat Ratio 8.8 CALC 8.0-36.0 Calcium 9.0 mg/dL 8.6-10.2 Total Protein 6.7 g/dL 6.4-8.3 Albumin 4.5 g/dL 3.8-5.5 Globulin 2.2 g/dL 2.0-4.8 A/G Ratio 2.0 CALC 0.6-2.3 Alk. Phosphatase 48 U/L 30-110 Alt (SGPT) 9 U/L 7-35 Ast (Sgot) 15 U/L 5-34 Total Bilirubin 0.3 mg/dL 0.2-1.3 GFR Non- >60 ml/min/1.73m^ >=60 GFR >60 ml/min/1.73m^ >=60 Laboratory test finding 11/08/2016 TSH 8.42 mIU/L High 0.50-6.00 11 Laboratory test finding 07/24/2016 TSH 8.52 mIU/L High 0.50-6.00 12 Complete Blood Count 06/05/2016 WBC 4.8 x10^3/UL 3.6-9.6 RBC 3.57 x10^6/UL Low 3.90-5.70 HGB 11.7 g/dL Low 12.1-17.2 HCT 33 % Low 36-50 MCV 93.0 fL 82.2-97.4 MCH 32.7 pg 27.6-33.3 MCHC 35.2 g/dL 33.0-35.5 RDW 14.6 % High 11.6-13.7 PLT 183 x10^3/UL 150-400 MPV 6.6 fL Low 7.4-10.4 Gran # 3.4 x10^3/UL 1.5-7.2 Lymph# 1.2 x10^3/UL 0.7-4.9 Rosebud# 0.2 x10^3/UL 0.1-0.9 Gran % 68.8 % 42.2-75.2 Lymph % 27.0 % 20.5-51.1 Rosebud% 4.2 % 1.7-9.3 Laboratory test finding 06/05/2016 TSH 14.36 mIU/L High 0.50-6.00 13 Laboratory test finding 03/02/2016 TSH 11.15 mIU/L High 0.50-6.00 Free T4 0.63 ng/dL Low 0.75-1.54 Laboratory test 12/07/2015 Cytology Non-Car Wrecker SEE RESULT BELOW 14 finding Laboratory test 11/29/2015 TSH 28.72 mIU/L High 0.50-6.00 15 finding Free T4 0.55 ng/dL Low 0.75-1.54 Laboratory test finding 11/29/2015 Thyroperoxidase AB 0.78 IU/mL <9 16, 17 Thyroglobulin AB 7.5 IU/mL <4.0 16, 18 Free Thyroxine Index 11/29/2015 Thyroxine Binding 1.2 TBI 0.8 - 1.3 16 (Fti),Serum Panel Capacity, S Thyroxine, Total, S 3.4 g/dL 4.5 - 11.7 16 Free Thyroxine Index 2.8 g/dL 4.8 - 12.7 16, 19 Laboratory test finding 11/29/2015 T3 Total 1.37 ng/mL 0.87-1.78 16, 20 Laboratory test finding 09/14/2015 LDH 142 U/L 140-271 21 C Reactive Protein 1.55 mg/L < 5.00 22 Laboratory test finding 09/14/2015 TSH 1.91 mIU/L 0.50-6.00 Complete Blood Count 09/14/2015 WBC 4.6 x10^3/UL 3.6-9.6 RBC 3.93 x10^6/UL 3.90-5.70 HGB 12.3 g/dL 12.1-17.2 HCT 36 % 36-50 MCV 93.0 fL 82.2-97.4 MCH 31.3 pg 27.6-33.3 MCHC 33.8 g/dL 33.0-35.5 RDW 13.6 % 11.6-13.7 PLT 224 x10^3/UL 150-400 MPV 7.4 fL 7.4-10.4 Gran # 3.0 x10^3/UL 1.5-7.2 Lymph# 1.5 x10^3/UL 0.7-4.9 Rosebud# 0.1 x10^3/UL 0.1-0.9 Gran % 61.5 % 42.2-75.2 Lymph % 34.3 % 20.5-51.1 Rosebud% 4.2 % 1.7-9.3 CBC Auto Diff 04/08/2015 White Blood Count 4.9 10^3/uL 4.8-10.8 Red Blood Count 3.99 10^6/uL Low 4.0-5.4 Hemoglobin 12.6 g/dL 12.0-16.0 Hematocrit 38 % 35-47 Mean Corpuscular Volume 96 fL 80-97 Mean Corpuscular Hemoglobin 32 pg High 27-31 Mean Corpuscular HGB Conc 33 g/dL 31-36 Red Cell Distribution Width 14 % 10.5-15 Platelet Count 201 10^3/uL 150-450 Mean Platelet Volume 9 um3 7.4-10.4 Abs Neutrophils 2.9 10^3/uL 1.5-7.7 Abs Lymphocytes 1.6 10^3/uL 1.0-4.8 Abs Monocytes 0.2 10^3/uL 0-0.8 Abs Eosinophils 0.1 10^3/uL 0-0.6 Abs Basophils 0.1 10^3/uL 0-0.2 Abs Nucleated RBC 0 10^3/uL Granulocyte % 59.8 % 38-83 Lymphocyte % 33.0 % 25-47 Monocyte % 4.9 % 1-9 Eosinophil % 1.2 % 0-6 Basophil % 1.1 % 0-2 Nucleated Red Blood Cells % 0.1 Laboratory test finding 04/08/2015 LH (Lutenizing Hormone) 6.7 ?IU/mL 23 C Reactive Protein 1.30 mg/L < 5.00 24 Cortisol 10.04 ?g/dL 25 CMV Igg/Igm 04/08/2015 Cytomegalovirus IgG Antibody Negative Negative 26 Cytomegalovirus IgM Antibody Negative Negative Laboratory test finding 04/08/2015 FSH (Follicle Stim 4.0 mIU/mL 27 Hormone) Testosterone Free & 04/08/2015 Free Testosterone ng/dl 0.46 ng/dL <0.30- 0.92 28 Total Testosterone 38 ng/dL 8-60 29 Laboratory test finding 04/08/2015 Lyme Disease Serology Negative Negative 30 Deana Jackson Comprehensive 04/08/2015 Ebv Capsid Ag IgG Ab Positive Negative Ebv Capsid Ag IgM Ab Negative Negative Deana-Jackson Nuclear Antigen Positive Negative Deana-Jackson Virus Interp See Comment 31 Nova Panel[place] [place] 04/08/2015 Anti Dna (Double Stranded Dna) Negative Negative Rheumatoid Factor <15 IU/mL <15 32 Nova (Antinuclear Antibodies) Negative Negative U1 CORPORATE STRATEGIST/SNRNP Igg Autoabs 7.9 U 33 Ssa/SSB Abs Igg 04/08/2015 SS-A/Ro Antibody 0.3 U 34 SS-B/La Antibody <0.2 U 35 Urine (Fma) 04/07/2015 SP Grav <=1.005 Urine, (Fma/CMC/CTX) NEGATIVE 36 Ua - Micro (a) 04/07/2015 Appearance CLEAR Color YELLOW Glucose, Urine (Fma/CMC/CTX) NEG Bilirubin NEG Ketones NEG SP Grav <=1.005 Blood NEG PH 6.0 Protein NEG Urobil 0.2 Nitrite NEG Leukocytes (Fma/CMC/[facility]rex) TRACE Hyaline - /Lpf Granular - /Lpf WBC (Fma,[facility]rex) 5-6 RBC - Mucus - /Lpf Epith RARE /Lpf Bacteria TRACE /Hpf Amorphous - /Lpf Crystals, Fluid (Fma/CMC/CTX) - Z#Comments - Laboratory test finding 04/07/2015 Urine Culture And SEE RESULT BELOW 37 Sensitivities Wound Culture/Sensi 09/14/2014 Wound/Misc Culture-Gram (SEE NOTE) 38 Stain HSV/VZV Derm PCR 09/14/2014 hs/VZ Source [place] HSV 1 PCR Negative Negative HSV 2 PCR Negative Negative 39 Varicella Zoster Source [place] Varicella Zoster Result Negative Negative 40 CBC Electronic (Fma) 03/30/2013 WBC 4.5 3.6-9.6 RBC 3.75 Low 3.90-5.70 Hemoglobin (Fma/CMC/CTX) 12.3 g/dL 12.1 - 17.2 Hematocrit (Fma/CMC/CTX) 36.2 % 36.1 - 50.3 Platelets 259 10^3/ul 150-400 Lymph% 32.7 20.5-51.1 Mixed% 4.9 Neutrophils % 62.4 Mean Corpuscular Vol 97 82.2-97.4 Mean Corpuscular Hemoglobin 32.8 27.6-33.3 Mean Corpuscular Hemo Concen 34.0 32.0-36.0 RDW 12.8 11.6-13.7 Mean Platelet Volume 6.1 Low 6.5-11.0 Comprehensive Metabolic Prof 03/30/2013 Albumin 4.6 g/dL 3.8-5.5 Alk. Phos. 52 U/L 30-110 Alt (SGPT) 10 U/L 7-35 Ast (Sgot) 17 U/L 5-34 BUN 7 mg/dL 6-26 Calcium 9.7 mg/dL 8.6-10.2 Chloride 102 mEq/L 94-112 Creatinine 0.8 mg/dL 0.6-1.4 Carbon Dioxide 27 mEq/L 21-32 Glucose 92 mg/dL 70-105 Sodium 139 mEq/L 134-149 Total Bilirubin 0.3 mg/dL 0.2-1.3 Total Protein 7.3 g/dL 6.3-8.1 Potassium 4.1 mEq/L 3.6-5.5 Globulin 2.6 g/dL 2.0-4.8 A/G Ratio 1.8 Calc 0.6-2.3 BUN/Creat Ratio 8.7 Calc 8.0-36.0 Laboratory test finding 03/30/2013 TSH 2.90 mIU/L 0.50-6.00 B12 641 pg/mL 230-1050 Comprehensive Metabolic Prof 08/25/2012 Albumin 4.6 g/dL 3.8-5.5 Alk. Phos. 52 U/L 30-110 Alt (SGPT) 7 U/L 7-35 Ast (Sgot) 13 U/L 5-34 BUN 14 mg/dL 6-26 Calcium 9.2 mg/dL 8.6-10.2 Chloride 100 mEq/L 94-112 Creatinine 0.9 mg/dL 0.6-1.4 Carbon Dioxide 27 mEq/L 21-32 Glucose 93 mg/dL 70-105 Sodium 138 mEq/L 134-149 Total Bilirubin 0.5 mg/dL 0.2-1.3 Total Protein 7.0 g/dL 6.3-8.1 Potassium 3.9 mEq/L 3.6-5.5 Globulin 2.4 g/dL 2.0-4.8 A/G Ratio 1.9 Calc 0.6-2.3 BUN/Creat Ratio 15.4 Calc 8.0-36.0 Laboratory test finding 08/25/2012 TSH 3.61 mIU/L 0.50-6.00 CBC Electronic (a) 08/25/2012 WBC 5.6 3.6-9.6 RBC 3.80 Low 3.90-5.70 Hemoglobin (Fma/CMC/CTX) 12.2 g/dL 12.1 - 17.2 Hematocrit (Fma/CMC/CTX) 35.8 % Low 36.1 - 50.3 Platelets 156 10^3/ul 150-400 Lymph% 16.8 Low 20.5-51.1 Mixed% 3.0 Neutrophils % 80.2 Mean Corpuscular Vol 94 82.2-97.4 Mean Corpuscular Hemoglobin 32.1 27.6-33.3 Mean Corpuscular Hemo Concen 34.1 32.0-36.0 RDW 11.8 11.6-13.7 Mean Platelet Volume 7.0 6.5-11.0 Laboratory test 06/14/2011 Osmolality, Urine 154 mOs/KgH2O 50-1400 41 finding Sodium,24 HR Urine 06/13/2011 Sodium, 24-Hour Urine 117.0 mmol/24hrs 40.0 -220.0 42 (CX) Total Volume, 24 Hour 3000 ml/24hrs 42 Comprehensive Metabolic Prof 06/12/2011 Albumin 4.6 g/dL 3.8-5.5 Alk. Phos. 42 U/L 30-110 Alt (SGPT) 8 U/L 7-35 Ast (Sgot) 14 U/L 5-34 BUN 7 mg/dL 6-26 Calcium 9.0 mg/dL 8.6-10.2 Chloride 105 mEq/L 94-112 Creatinine 0.7 mg/dL 0.6-1.4 Carbon Dioxide 22 mEq/L 21-32 Glucose 73 mg/dL 70-105 Sodium 140 mEq/L 134-149 Total Bilirubin 0.3 mg/dL 0.2-1.3 Total Protein 6.6 g/dL 6.3-8.1 Potassium 4.4 mEq/L 3.6-5.5 Globulin 2.0 g/dL 2.0-4.8 A/G Ratio 2.2 Calc 0.6-2.2 BUN/Creat Ratio 10.1 Calc 8.0-36.0 Laboratory test finding 06/12/2011 TSH 3.65 mIU/L 0.50-6.00 Lipid Profile 06/12/2011 Cholesterol 170 mg/dL 120-200 HDL 57 mg/dL 30-85 Triglycerides 43 mg/dL 30-200 HDL Risk Factor 3.0 CALC 0.0-4.0 LDL (Calculated) 105 CALC 0-129 VLDL (Calculated) 9 mg/dL 0-50 CBC Electronic ([facility]) 06/12/2011 WBC 4.4 3.6-9.6 RBC 3.94 3.90-5.70 Hemoglobin (Fma/CMC/CTX) 13.1 g/dL 12.1 - 17.2 Hematocrit (a/CMC/CTX) 37.5 % 36.1 - 50.3 Platelets 219 10^3/ul 150-400 Lymph% 31.6 20.5-51.1 Mixed% 6.9 Neutrophils % 61.5 Mean Corpuscular Vol 95 82.2-97.4 Mean Corpuscular Hemoglobin 33.3 27.6-33.3 Mean Corpuscular Hemo Concen 35.0 32.0-36.0 RDW 11.5 Low 11.6-13.7 Mean Platelet Volume 7.4 6.5-11.0 Laboratory test finding 06/12/2011 Hemoglobin A1c 5.2 % 4.1-5.7 [place] [place] Laboratory test finding 06/12/2011 Osmolality, Serum 288 mOs/KgH2O 284- 295 43 Laboratory test finding 11/11/2009 TSH 2.22 mIU/L 0.50-6.00 Comprehensive Metabolic 11/11/2009 Albumin 4.2 g/dL 3.8-5.5 Prof Alk. Phos. 39 U/L 30-110 Alt (SGPT) 12 U/L 7-35 Ast (Sgot) 12 U/L 5-34 BUN 10 mg/dL 6-26 Calcium 9.2 mg/dL 8.6-10.2 Chloride 100 mEq/L 94-112 Creatinine 0.9 mg/dL 0.6-1.4 Carbon Dioxide 24 mEq/L 21-32 Glucose 84 mg/dL 70-105 Sodium 142 mEq/L 134-149 Total Bilirubin 0.4 mg/dL 0.2-1.3 Total Protein 7.1 g/dL 6.3-8.1 Potassium 4.1 mEq/L 3.6-5.5 Globulin 3.0 g/dL 2.0-4.8 A/G Ratio 1.4 Calc 0.6-2.2 BUN/Creat Ratio 11.1 Calc 8.0-36.0 Lipid Profile 11/11/2009 Cholesterol 155 mg/dL 120-200 HDL 55 mg/dL 30-85 Triglycerides 38 mg/dL 30-200 HDL Risk Factor 2.8 CALC Low 4.2-7.0 LDL (Calculated) 92 CALC 0-129 VLDL (Calculated) 8 mg/dL 0-50 CBC (a) 11/11/2009 WBC 3.0 Low 3.6-9.6 RBC 4.05 3.90-5.70 Hemoglobin (Fma/CMC/CTX) 12.7 g/dL 12.1 - 17.2 Hematocrit (Fma/CMC/CTX) 38.7 % 36.1 - 50.3 Mean Corpuscular Vol 95.6 82.2-97.4 Mean Corpuscular Hemaglobin 31.4 27.6-33.3 Mean Corpuscular Hemo Concen 32.8 Low 33.0-36.0 Platelets 172 10^3/ul 150-400 Lymph% 36.1 20.5-51.1 Mixed% 8.8 Neutrophils % 55.1 RDW 13.8 High 11.6-13.7 Mean Platelet Volume 11.3 High 7.4-10.4 Laboratory test finding 12/17/2008 TSH 2.02 mIU/L 0.50-6.00 Laboratory test finding 10/27/2008 (HCG) Serum NEGATIVE Negative 44 Stat CBC With Electronic Diff 10/27/2008 White Blood Count 3.7 CUMM Low 4.8- 10.8 Stat Red Cell Count 3.73 CUMM Low 4.2-5.4 Hemoglobin 12.3 g/dL 12.0-16.0 Hematocrit 35 % 35-47 Mean Corpuscular Volume 94 um3 79-97 Mean Corpuscular Hemoglob 33 pg High 27-31 Mean Corpuscular HGB Cone 35 g/dL 32-36 Redcell Distribution WDTH 13 % 10.5-15 Platelet Count 167 CUMM 150-450 Mean Platelet Volume 7.7 um3 7.4-10.4 Gran % 46.8 % 38-83 Lymph % 43.7 % 25-47 Mononuclear % 7.0 % 1-9 Eosinophil % 1.4 % 0-6 Basophil % 1.1 % 0-2 Abs Lymphs 1.6 1.0-4.8 Abs Mononuclear 0.3 0-0.8 Absolute Neutrophil Count 1.7 1.5-7.7 Abs Eosinophils 0.1 0-0.6 Abs Basophils 0 0-0.2 Comp Stat 10/27/2008 Sodium 134 mmol/L Low 135-145 Potassium 3.6 mmol/L 3.5-5.0 Chloride 104 mmol/L 101-111 Co2 (Carbon Dioxide) 26.0 mmol/L 22-32 Anion Gap 4.0 mmol/L 2-11 45 Glucose 83 mg/dL 70-100 46 BUN 7 mg/dL 6-24 Creatinine 0.70 mg/dL 0.50-1.40 One Over Creatinine 1.40 BUN/Creatinine Ratio 10.0 8-20 Calcium 9.0 mg/dL 8.1-9.9 47 Total Protein 7.2 GM/DL 6.2-8.1 Albumin 4.1 GM/DL 3.6-5.4 Globulin 3.1 GM/DL 2-4 Albumin/Globulin Ratio 1.3 1-3 Bilirubin Total 0.7 mg/dL 0.4-1.5 48 Alkaline Phosphatase 44 U/L 30-110 Alt (SGPT) 13 U/L Low 14-54 Ast (Sgot) 19 U/L 12-42 Laboratory test finding 10/27/2008 Troponin-I (TnI) 0.01 NG/ML 0-0.06 49 Alcohol Stat 10/27/2008 Alcohol < 10.0 mg/dL None Detected 50 T4, TSH, Free T4 10/27/2008 Free Thyroxine 0.83 NG/ML 0.61-1.24 51 Thyroxine 5.8 g/dL 5-12 TSH 5.90 MIU/ML High 0.34-5.60 Urinalysis Stat 10/27/2008 Ua Color YELLOW Appearance-Urine CLEAR Specific [place]-Ur 1.005 Low 1.010-1.030 Esterase-Urine NEGATIVE Negative Nitrite NEGATIVE Negative [id number]-LSU NEGATIVE Negative Protein-Urine NEGATIVE Negative PH-Urine 7.5 5-9 Blood-Urine 1+ Negative Ketones-Urine NEGATIVE Negative Bilirubin-Ur NEGATIVE Negative Glucose-Urine NEGATIVE Negative Urinalysis W/Microscopic Stat 10/27/2008 Ua Color YELLOW Appearance-Urine CLEAR Specific [place]-Ur 1.005 Low 1.010-1.030 Esterase-Urine NEGATIVE Negative Nitrite NEGATIVE Negative Zxtvtdiiagaj-So-UBC NEGATIVE Negative Protein-Urine NEGATIVE Negative PH-Urine 7.5 5-9 Blood-Urine 1+ Negative Ketones-Urine NEGATIVE Negative Bilirubin-Ur NEGATIVE Negative Glucose-Urine NEGATIVE Negative WBC-Urine 0-1 0-5 RBC-Urine 1-3 0-2 Epith Cells-Ur OCCASIONAL Drug Screen Urine 10/27/2008 Amphetamines Urine Screen NONE DETECTED None Detect Barbituates Urine Screen NONE DETECTED None Detect Benzodiazepine Ur Screen POSITIVE None Detect Cannabinoid Urine Screen NONE DETECTED None Detect Cocaine Metabolites Urine NONE DETECTED None Detect Opiates Urine Screen NONE DETECTED None Detect PCP Urine Screen NONE DETECTED None Detect 52 Complete Blood Count 08/10/2008 WBC 3.4 x10^3/uL Low 3.6-9.6 53, 54 Gran# 2.2 x10^3/uL 1.5-7.2 53 Gran% 64.6 % 42.2-75.2 53 HCT 37 % 36-50 53 HGB 12.5 g/dL 12.1-17.2 53 Lymph# 1.0 x10^3/uL 0.7-4.9 53 Lymph% 29.8 % 20.5-51.1 53 MCH 31.3 pg 27.6-33.3 53 MCV 93.0 fL 82.2-97.4 53 MCHC 33.7 g/dL 33.0-35.5 53 Mo# 0.2 x10^3/uL 0.1-0.9 53 Mo% 5.6 % 1.7-9.3 53 MPV 7.7 fL 7.4-10.4 53 PLT 167 x10^3/uL 150-400 53 RBC 3.99 x10^6/uL 3.90-5.70 53 RDW 13.5 % 11.6-13.7 53 Comprehensive Metabolic Prof 08/10/2008 Albumin 4.3 g/dL 3.8-5.5 53 Alk. Phos. 51 U/L 30-110 53 Alt (SGPT) 15 U/L 7-35 53 Ast (Sgot) 19 U/L 5-34 53 BUN 12 mg/dL 6-26 53 Calcium 9.1 mg/dL 8.6-10.2 53 Chloride 101 mEq/L 94-112 53 Creatinine 0.8 mg/dL 0.6-1.4 53 Carbon Dioxide 24 mEq/L 21-32 53 Glucose 77 mg/dL 70-105 53 Sodium 138 mEq/L 134-149 53 Total Bilirubin 0.4 mg/dL 0.2-1.3 53 Total Protein 7.0 g/dL 6.3-8.1 53 Potassium 4.1 mEq/L 3.6-5.5 53 Globulin 2.7 g/dL 2.0-4.8 53 A/G Ratio 1.6 Calc 0.6-2.2 53 BUN/Creat Ratio 14.1 Calc 8.0-36.0 53 Lipid Profile 08/10/2008 Cholesterol 159 mg/dL 120-200 53, 55 HDL 65 mg/dL 30-85 53 Triglycerides 32 mg/dL 30-200 53, 56 HDL Risk Factor 2.5 CALC Low 4.2-7.0 53 LDL (Calculated) 88 CALC 0-129 53 VLDL (Calculated) 6 mg/dL 0-50 53 Laboratory test finding 08/10/2008 TSH 3.09 mIU/L 0.50-6.00 53 Laboratory test finding 08/10/2008 LH 5.2 mIU/ml 57, 58 FSH 3.6 mIU/ml 57, 59 Laboratory test finding 11/17/2007 TSH 2.23 mIU/L 0.50-6.00 Free T4 0.82 ng/dL 0.75-1.54 Ferritin 29 ng/mL 6-115 Complete Blood Count 11/17/2007 WBC 6.0 x10^3/u 3.6-9.6 Gran# 4.8 x10^3/u 1.5-7.2 Gran% 80.3 % High 42.2-75.2 HCT 37 % 36-50 HGB 12.3 g/dL 12.1-17.2 Lymph# 0.9 x10^3/u 0.7-4.9 Lymph% 15.7 % Low 20.5-51.1 MCH 32.0 pg 27.6-33.3 MCV 96.0 fL 82.2-97.4 MCHC 33.3 g/dL 33.0-35.5 Mo# 0.2 x10^3/u 0.1-0.9 Mo% 4.0 % 1.7-9.3 MPV 7.9 fL 7.4-10.4 PLT 217 x10^3/u 150-400 RBC 3.83 x10^6/u Low 3.90-5.70 RDW 12.9 % 11.6-13.7 Laboratory test finding 01/28/2007 Cortisol 23.9 g/dL 60, 61 Acth 11 pg/mL 6.0-46.0 60, 62 Laboratory test finding 10/22/2006 Testosterone, Total 48.5 ng/dL 14.0- 76.0 63 FSH 9.5 mIU/ml 63, 64 LH 9.3 mIU/ml 63, 65 Laboratory test finding 10/09/2006 C-Reactive Protein <0.1 mg/dL 0.0-0.5 66 Basic Metabolic Profile 10/09/2006 BUN 12 mg/dL 6-26 Calcium 9.3 mg/dL 8.6-10.2 Chloride 101 mEq/L 94-112 Creatinine 1.0 mg/dL 0.6-1.4 Carbon Dioxide 26 mEq/L 21-32 Glucose 73 mg/dL 70-105 Sodium 136 mEq/L 134-149 Potassium 3.9 mEq/L 3.6-5.5 BUN/Creat Ratio 12.2 Calc 8.0-36.0 Laboratory test 10/09/2006 Sed Rate (Fma/CMC/Centrex) 7 MM finding Complete Blood Count 09/05/2006 WBC 4.7 3.6-9.6 x10\\S\\3/uL Gran# 3.1 x10\\S\\3/uL 1.5-7.2 Gran% 65.1 % 42.2-75.2 HCT 36 % Low 36-50 HGB 12.4 g/dL 12.1-17.2 Lymph# 1.4 x10\\S\\3/uL 0.7-4.9 Lymph% 29.8 % 20.5-51.1 MCH 32.6 pg 27.6-33.3 MCV 93.9 fL 82.2-97.4 MCHC 34.8 g/dL 33.0-35.5 Mo# 0.2 x10\\S\\3/uL 0.1-0.9 Mo% 5.1 % 1.7-9.3 MPV 8.7 fL 7.4-10.4 PLT 182 x10\\S\\3/uL 150-400 RBC 3.81 x10\\S\\6/uL Low 3.90-5.70 RDW 13.2 % 11.6-13.7 Comprehensive Metabolic Prof 09/05/2006 Albumin 4.6 g/dL 3.8-5.5 Alk. Phos. 39 U/L 30-110 Alt (SGPT) 13 U/L 7-35 Ast (Sgot) 15 U/L 5-34 BUN 11 mg/dL 6-26 Calcium 10.2 mg/dL 8.6-10.2 Chloride 95 mEq/L 94-112 Creatinine 0.8 mg/dL 0.6-1.4 Carbon Dioxide 25 mEq/L 21-32 Glucose 92 mg/dL 70-105 Sodium 135 mEq/L 134-149 Total Bilirubin 0.4 mg/dL 0.2-1.3 Total Protein 7.7 g/dL 6.3-8.1 Potassium 3.8 mEq/L 3.6-5.5 Globulin 3.2 g/dL 2.0-4.8 A/G Ratio 1.4 Calc 0.6-2.2 BUN/Creat Ratio 13.8 Calc 8.0-36.0 Laboratory test finding 08/06/2006 Fasting Glucose 86 mg/dL 70-110 67 Fasting Urine Glucose NEGATIVE Negative 67 1HR Glucose 75 mg/dL 67, 68 2HR Glucose 63 mg/dL 67, 69 3HR Glucose 79 mg/dL 67, 70 CBC ([place]) ([facility]) New 01/21/2006 WBC 4.0 3.6-9.6 RBC 3.69 Low 3.90-5.70 Hemoglobin (Fma/CMC/CTX) 12.1 g/dL 12.1 - 17.2 Hematocrit (Fma/CMC/CTX) 35 % Low 36.1 - 50.3 Mean Corpuscular Vol 94.7 82.2-97.4 Mean Corpuscular Hemaglobin 32.8 27.6-33.3 Mean Corpuscular Hemo Concen 34.7 33.0-36.0 RDW 13.1 11.6-13.7 Platelets 179 10^3/ul 150-400 Mean Platelet Volume 8.1 7.4-10.4 Auto-Diff - Gran# 2.5 1.5-7.2 Lymph# 1.2 0.7-4.9 Monocytes 0.3 10^3/uL 0.1 - 0.9 Gran% 63.1 42.2-75.2 Lymph% 28.8 20.5-51.1 Monocytes 8.1 % 1.7-9.3 Comp Metabolic ([facility]) 01/21/2006 Glucose, Serum 106 mg/dL High 70-105 Female ([facility]/CMC/CTX) BUN ([facility]/CMC/[facility]rex) 11 mg/dL 6-26 Creatinine, Serum 0.9 mg/dL 0.6-1.4 BUN/Creatinin Ratio 11.9 8.0-36 Sodium 138 134-149 Potassium 4.0 3.6-5.5 Chloride 98 mEq/L 94-112 Co2 27 21-32 Calcium (a/CMC/[facility]rex) 9.2 mg/dL 8.6-10.2 Total Protein 7.0 g/dL 6.3-8.1 Albumin ([facility]) 4.2 3.8-5.5 Globulin 2.8 2.0-4.8 A/G Ratio (A/G Ratio) 1.5 0.6-2.2 Alkaline Phosphatase (F/C/CTX) 54 U/L 30-110 Alt (SGPT) Female ([facility]) 12 7-35 Ast Sgot 18 U/L 5-34 Bilirubin, Total 0.6 mg/dL 0.2-1.3 CBC Electronic ([facility]) 03/19/2005 WBC 4.9 3.6-9.6 Lymphocytes 30.6 % 20.5 - 51.1 Monocytes 5.4 % 1.7-9.3 Granulocytes 64.0 % 42.2 - 75.2 Lymphocytes 1.5 10^3/uL 0.7 - 4.9 Monocytes 0.3 10^3/uL 0.1 - 0.9 Granulocytes 3.1 10^3/uL 1.5 - 7.2 RBC 3.94 3.90-5.70 Hemoglobin (a/CMC/CTX) 12.8 g/dL 12.1 - 17.2 Hematocrit (a/CMC/CTX) 37.7 % 36.1 - 50.3 Mean Corpuscular Vol 95.6 82.2-97.4 Mean Corpuscular Hemaglobin 32.6 27.6-33.3 Mean Corpuscular Hemo Concen 34.1 33.0-36.0 RDW 13.0 11.6-13.7 Platelets 179. 10^3/ul 150-400 Mean Platelet Volume 6.9 Low 7.4-10.4 Laboratory test finding 03/19/2005 TSH ([facility] 2.30 uIU/ml 0.5- 6.0 Liver Function ([facility]) 03/19/2005 Total Protein 6.9 g/dL 6.3-8.1 Albumin ([facility]) 4.2 3.8-5.5 A/G Ratio ([facility]) 1.5 0.6-2.2 Globulin 2.8 2.0-4.8 Alkaline Phosphatase (F/C/CTX) 40 U/L 22-95 Alt (SGPT) ([facility]) 17 10-40 Ast (Sgot) ([facility]) 22 U/mL 5-34 Bilirubin, Total 0.4 mg/dL 0.2-1.3 Bilirubin, Direct 0.2 mg/dL 0-0.6 Bilirubin, Indirect 0.17 ml/dl 0.10-1.0 Liver Function ([facility]) 08/01/2004 Total Protein 7.2 g/dL 6.3-8.1 Albumin ([facility]) 4.3 3.8-5.5 A/G Ratio ([facility]) 1.5 0.6-2.2 Globulin 2.9 2.0-4.8 Alkaline Phosphatase (F/C/CTX) 50 U/L 30-110 Alt (SGPT) 9 7-35 Ast (Sgot) ([facility] 15 U/mL 5-34 Bilirubin, Total 0.3 mg/dL 0.2-1.3 Bilirubin, Direct 0.2 mg/dL 0-0.6 Bilirubin, Indirect 0.10 ml/dl 0.10-1.0 CBC Electronic ([facility]) 06/08/2003 WBC 7.1 3.6-9.6 Lymphocytes 23.5 % 20.5 - 51.1 Monocytes 3.1 % 1.7-9.3 Granulocytes 73.4 % 42.2 - 75.2 Lymphocytes 1.7 10^3/uL 0.7 - 4.9 Monocytes 0.2 10^3/uL 0.1 - 0.9 Granulocytes 5.2 10^3/uL 1.5 - 7.2 RBC 3.88 Low 3.90-5.70 Hemoglobin (a/CMC/CTX) 12.1 g/dL 12.1 - 17.2 Hematocrit (a/CMC/CTX) 36.8 % 36.1 - 50.3 Mean Corpuscular Vol 94.7 82.2-97.4 Mean Corpuscular Hemaglobin 31.1 27.6-33.3 Mean Corpuscular Hemo Concen 32.8 Low 33.0-35.5 RDW 13.2 11.6-13.7 Platelets 192. 10^3/ul 150-400 Mean Platelet Volume 7.8 7.4-10.4 Laboratory test finding 01/20/2003 Reticulocyte Count 0.8 % 0.5 - 1.5 Iron 3 Ibc 01/19/2003 Iron, Total 57 g/dL Low 60-150 (a/CMC/[facility]) (a/CMC/[facility]) Tibc ([facility]) 337 g/dL 245-400 Uibc - 90-340 Iron Saturation Percent 16.9 10-45 CBC Electronic ([facility]) 01/19/2003 WBC 4.9 3.6-9.6 Lymphocytes 36.4 % 20.5 - 51.1 Monocytes 2.6 % 1.7-9.3 Granulocytes 61.0 % 42.2 - 75.2 Lymphocytes 1.8 10^3/uL 0.7 - 4.9 Monocytes 0.1 10^3/uL 0.1 - 0.9 Granulocytes 3.0 10^3/uL 1.5 - 7.2 RBC 3.58 Low 3.90-5.70 Hemoglobin (a/CMC/CTX) 11.7 g/dL Low 12.1 - 17.2 Hematocrit (a/CMC/CTX) 34.0 % Low 36.1 - 50.3 Mean Corpuscular Vol 94.8 82.2-97.4 Mean Corpuscular Hemaglobin 32.6 27.6-33.3 Mean Corpuscular Hemo Concen 34.4 33.0-34.8 RDW 13.8 High 11.6-13.7 Platelets 192 10^3/ul 150-400 Mean Platelet Volume 9.2 7.4-10.4 Laboratory test finding 12/15/2002 Stool For Fat SEE DETAIL Negative 71 Stool Color BROWN Stool Form FORMED Consistency HARD Comp Metabolic ([facility]) 12/14/2002 Glucose, Serum ([facility]) 88 mg/dL 70- 118 BUN ([facility]) 9 mg/dL 7-26 Creatinine ([facility]) 0.7 mg/dL 0.6-1.4 BUN/Creatinin Ratio 12.6 8.0-36 Sodium 139 134-149 Potassium 4.0 3.6-5.5 Chloride 101 mEq/L 94-112 Co2 25 21-32 Calcium (a/[facility]) 8.9 mg/dL 8.6-10.0 Total Protein 6.7 g/dL 6.3-8.1 Albumin ([facility]) 4.4 3.8-5.5 Globulin 2.3 2.0-4.8 A/G Ratio ([facility]) 1.9 0.6-2.2 Alkaline Phosphatase (F/C/CTX) 44 U/L 30-110 Alt (SGPT) 12 10-40 Ast (Sgot) (a/[facility]) 9 U/mL 5-34 Bilirubin, Total 0.3 mg/dL 0.2-1.3 Free T4/TSH ([facility]) 12/14/2002 TSH 2.91 uIU/ml 0.5-6.0 Free T4 0.87 ng/dL 0.75-1.54 CBC Electronic ([facility]) 12/14/2002 WBC 3.9 3.6-9.6 Lymphocytes 30.4 % 20.5 - 51.1 Monocytes 5.1 % 1.7-9.3 Granulocytes 64.5 % 42.2 - 75.2 Lymphocytes 1.2 10^3/uL 0.7 - 4.9 Monocytes 0.2 10^3/uL 0.1 - 0.9 Granulocytes 2.5 10^3/uL 1.5 - 7.2 RBC 3.50 Low 3.90-5.70 Hemoglobin (Fma/CMC/CTX) 11.3 g/dL Low 12.1 - 17.2 Hematocrit (Fma/CMC/CTX) 32.9 % Low 36.1 - 50.3 Mean Corpuscular Vol 94.0 82.2-97.4 Mean Corpuscular Hemaglobin 32.3 27.6-33.3 Mean Corpuscular Hemo Concen 34.4 33.0-34.8 RDW 13.6 11.6-13.7 Platelets 146 10^3/ul Low 150-400 Mean Platelet Volume 8.4 7.4-10.4 Laboratory test finding 12/14/2002 LH 4.3 mIU/ml 72 FSH 5.3 mIU/ml 73 1 Digital Production Artist: [id number] 2 Because ethnic data is not always readily available, this report includes an eGFR for both -Americans and non- Americans. The National Kidney Disease Education Program (NKDEP) does not endorse the use of the MDRD equation for patients that are not between the ages of 18 and 70, are , have extremes of body size, muscle mass, or nutritional status, or are non- or non-. According to the National Kidney Foundation, irrespective of diagnosis, the stage of the disease is based on the level of kidney function: Stage Description GFR(mL/min/1.73 m(2)) 1 Kidney damage with normal or decreased GFR 90 2 Kidney damage with mild decrease in GFR 60-89 3 Moderate decrease in GFR 30-59 4 Severe decrease in GFR 15-29 5 Kidney failure <15 (or dialysis) 3 Acute inflammation: >10.00 4 It is recognized that currently available assays for the detection of antibodies to HIV-1 and/or HIV-2 may not detect all infected individuals. HIV antibodies may be undetectable in some stages of the infection and in some clinical conditions. The performance of this assay has not been established for populations of infants or children. Assayed by Chemiluminescence Microparticle Immunoassay on the Siemens Advia Centaur CP. Values obtained with different methods or kits cannot be used interchangeably.The diagnostic specificity of the ADVIA Centaur 1/O/2 Enhanced assay in the low risk population was 99.90% (6052/6058) with a 95% confidence interval of 99.78 to 99.96%. 5 RESULTS VERIFIED BY REPEAT ANALYSIS 6 [id number] SEE RESULT BELOW Name: JESSMARCELL [place] : [address]: Jose Perry MD Acct: [id number] Unit: [id number] AGE: 52 Location: [facility] Re07/10/17 SEX: F Status: REG REF SPEC: [id number] CEDRICK: 07/10/17-1018 [facility] DR: Guanako Salgado MD REQ: [id number] RECD: 07/10/17-1220 STATUS: LEDA WARD DR: Jose Perry MD _ ORDERED: LEVEL 4 COMMENTS: [id number] FINAL DIAGNOSIS Breast, left, stereotactic biopsy: -- Benign breast tissue with non-proliferative fibrocystic change and associated microcalcifications. -- No evidence of invasive or in situ carcinoma. COMMENT: Clinical and radiologic correlation is recommended. PRE-OPERATIVE DIAGNOSIS Left breast calcifications POST-OPERATIVE DIAGNOSIS Indeterminant calcifications GROSS DESCRIPTION The specimen is received in formalin labeled, Left Breast Stereotactic Biopsy , and consists of a 3.3 x 3.0 x 0.7 cm aggregate of sullivan-white to yellow irregular fibrofatty soft tissue fragments admixed with red-brown blood clot. Entirely submitted, two cassettes. Signed (signature on file) Jesika Bryan MD 01/18 0939 END OF REPORT * ML=Testing performed at Main Lab DEPARTMENT OF PATHOLOGY, [address] [place] [address] Naseem Martinez M.D. Director [facility] # [id number] SEE RESULT BELOW Name: MARCELL LEAL : [address]: Danny Barney MD Acct: [id number] Unit: [id number] AGE: 52 Location: ENDOCEC Re05/21/17 SEX: F Status: DEP REF SPEC: [id number] CEDRICK: 05/21/17- SUBM DR: Danny Barney MD REQ: [id number] RECD: 05/21/17123 STATUS: LEDA WARD DR: Jose Perry MD _ ORDERED: LEVEL 4/2 COMMENTS: [id number] FINAL DIAGNOSIS 1. Colon, cecum, biopsy: -- Benign colonic mucosa with surface hyperplastic change. 2. Colon, at 20 cm, biopsy: -- Hyperplastic polyp. CLINICAL HISTORY Screening/Surveillance for malignancy in asymptomatic patient. Constipation POST-OPERATIVE DIAGNOSIS Colonoscopy to cecum with Peds scope, twisty ? cecal polyp biopsied, biopsy at 20 cm; 5-10 years GROSS DESCRIPTION 1. The specimen is received in formalin labeled, Biopsy Cecal Polyp, and consists of a 0.5 x 0.2 x 0.1 cm sullivan irregular soft tissue fragment which is submitted entirely in one cassette. 2. The specimen is received in formalin labeled, Biopsy Colon Polyp at 20 cm, and consists of a 0.3 x 0.2 x 0.2 cm sullivan-white polypoid soft tissue fragment which is submitted entirely in one cassette. Signed (signature on file) Jesika Bryan MD 1335 END OF REPORT * ML=Testing performed at Main Lab DEPARTMENT OF PATHOLOGY, [address] [place] [address] Naseem Martinez M.D. Director [facility] # [id number] 10 RESULTS VERIFIED BY REPEAT ANALYSIS 11 RESULTS VERIFIED BY REPEAT ANALYSIS 12 RESULTS VERIFIED BY REPEAT ANALYSIS 13 RESULTS VERIFIED BY REPEAT ANALYSIS 14 SEE RESULT BELOW Name: MARCELL LEAL : [address]: Jesika Johnson NP Acct: [id number] Unit: [id number] AGE: 50 Location: LAB Re12/07/15 SEX: F Status: REG REF SPEC: [id number] CEDRICK: 12/07/15-[address]: Jesika Johnson DOUGH MOLDER HAND REQ: [id number] RECD: 12/07/15 STATUS: LEDA WARD DR: Jose Hannon MD _ ORDERED: FN ASP SUPERFIC, FN ASP PALP, FNA IMMEDIATE S, PATH CONSULT FINAL DIAGNOSIS Neck, left, fine needle aspiration by palpation: -- Atypical- angiolipoma. See comment. Comment: The aspirate smears demonstrates abundant benign-appearing adipose tissue fragments with distinctive traversing blood vessels characteristic of angiolipoma. No evidence of lymphoid or epithelial tissue is identified. These findings are compatible with the clinical exam. The procedure was explained to and understood by the patient. Signed consent was obtained and a time out procedure was performed at the bedside to verify patient identity and biopsy site. Fine needle aspiration biopsy was performed times 1 with a 25 gauge needle on 2 cm soft mobile superficial mid left neck mass. Adequacy was assessed by fast stain technique. The procedure was tolerated well without complications. A. NECK LEFT - LEFT NECK FINE NEEDLE ASPIRATION BY PALAPTION CONTINUED ON NEXT PAGE * ML=Testing performed at Main Lab DEPARTMENT OF PATHOLOGY, [address] [place] [address] Naseem Martinez M.D. Director [facility] # [id number] RUN DATE: 12/08/15 [facility] LAB LIVE PAGE 2 Patient: MARCELL LEAL [id number] (Continued) CLINICAL HISTORY (Continued) CLINICAL HISTORY 2 cm soft mobile superficial mass, mid left neck. IMMEDIATE INTERPRETATION Pass 1-adequate GROSS DESCRIPTION Fine needle aspiration by palpation x 1 pass with 2 Alcohol fixed slide(s) and 1 Air dried slide(s). Signed (signature on file) Naseem Martinez MD 1332 END OF REPORT * ML=Testing performed at Main Lab DEPARTMENT OF PATHOLOGY, [address] [place] [address] Naseem Martinez M.D. Director [facility] # [id number] 15 RESULTS VERIFIED BY REPEAT ANALYSIS 16 [id number] 18 ADDITIONAL INFORMATION The thyroglobulin antibody testing method is an immunoenzymatic assay manufactured by [employer] and performed on the [employer] DXI 800. Values obtained from different assay methods or kits may be different and cannot be used interchangeably. The results cannot be interpreted as absolute evidence for the presence or absence of malignant disease. Test Performed by: [place] [address] Piece Hand: Guanako Hanson II, M.D., Ph.D. 19 Test Performed by: [place] [address] Piece Hand: Guanako Hanson II, M.D., Ph.D. 20 [id number] 22 Acute inflammation: >10.00 23 Normally menstruating females - Follicular Phase 1 - 18 - Mid-Cycle Peak 24 - 105 - Luteal Phase 0.6 - 20 Postmenopausal females 15 - 62 24 Acute inflammation: >10.00 25 AM 8.7-22.4 PM <10 26 Test Performed by: [place] [address] Piece Hand: Guanako Hanson II, M.D., Ph.D. 27 Normally menstruating females - Follicular phase 3 - 9 - Mid-cycle peak 4 - 23 - Luteal phase 1 - 6 Postmenopausal females 16 - 114 28 ADDITIONAL INFORMATION Testing performed by [facility]. 29 ADDITIONAL INFORMATION Testing performed by Liquid Chromatography-Tandem Mass Spectrometry (LC-MS/MS). Test Performed by: [place] [address] Piece Hand: Guanako Hanson II, M.D., Ph.D. 30 Serologic response to B. burgdorferi infection is not detected, but cannot rule out early infection during which low or undetectable antibody levels to B. burgdorferi may be present. If clinically indicated, a new serum specimen should be submitted in 7-14 days. Test Performed by: [place] [address] Piece Hand: Guanako Hanson II, M.D., Ph.D. 31 RESULT: Results suggest past infection. ADDITIONAL INFORMATION In most populations, at least 90% of the adult population will have been infected with EBV sometime in the past and therefore, will be positive for anti-VCA/IgG and anti- EBNA. Antibodies to EBNA develop 6-8 weeks after primary infection and remain present for life. Presence of VCA/ IgM antibodies indicates recent primary infection with EBV. Test Performed by: [place] [address] Piece Hand: Guanako Hanson II, M.D., Ph.D. 32 Test Performed by: [place] [address] Piece Hand: Guanako Hanson II, M.D., Ph.D. 33 Interpretation: Positive (>=1.0) REFERENCE VALUE <1.0 (Negative) Test Performed by: [place] [address] Piece Hand: Guanako Hanson II, M.D., Ph.D. 34 REFERENCE VALUE <1.0 (Negative) 35 REFERENCE VALUE <1.0 (Negative) Test Performed by: [place] [address] Piece Hand: Guanako Hanson II, M.D., Ph.D. 36 INTERPRET W/CAUTION D/T LOW SPECIFIC GRAVITY 37 SEE RESULT BELOW Name: MARCELL LEAL : [address]: Jose Perry MD Acct: [id number] Unit: [id number] AGE: 49 Location: [facility] Re04/07/15 SEX: F Status: REG REF SPEC: [id number] CEDRICK: 04/07/[address]: Jose Perry MD REQ: [id number] RECD: 04/08/15 STATUS: COMP _ SOURCE: URINE SPDESC: ORDERED: Urine Culture Procedure Result Verified Site Urine Culture Final 04/10/15- 08 ML Organism 1 ESCHERICHIA COLI [place] Count 75-100,000 (Many) CFU/ML 1. ESCHERICHIA COLI M.I.C. RX --------- ------ Ampicillin >=32 R Cefazolin <=4 S Cefepime <=1 S Ceftriaxone <=1 S Ciprofloxacin <=0.25 S Gentamicin <=1 S Levofloxacin <=0.12 S Meropenem <=0.25 S Nitrofurantoin <=16 S Tetracycline <=1 S Pipercillin/Tazobactam <=4 S Trimethoprim/Sulfamethoxazole <=20 S Amoxicillin/Clavulanic Acid 8 S Aztreonam <=1 S Contact the Microbiology Department for any additional antibiotic reporting. * ML - MAIN LAB ([facility]) . END OF REPORT * ML=Testing performed at Main Lab DEPARTMENT OF PATHOLOGY, [facility] [place] [employer] [place] [address] Naseem Martinez M.D. Director [place] # [id number] RUN DATE: 09/16/14 [facility] LAB LIVE PAGE 1 RUN TIME: [address] [place] [address] Specimen Inquiry Name: MARCELL LEAL : [address]: Jose Perry MD Acct: [id number] Unit: [id number] AGE: 49 Location: [facility] Re09/14/14 SEX: F Status: REG REF SPEC: [id number] CEDRICK: 09/14/14-1313 [facility] DR: Jose Perry MD REQ: [id number] RECD: 09/14/14 STATUS: COMP _ SOURCE: FACE SPDESC: ORDERED: Culture Stain QUERIES: Provider Requisition # [id number] Specimen Description CHIN LESION Procedure Result Verified Site Wound/Misc Gram Stain Final 09/15/14- 0806 ML No Neutrophils Observed No Organisms Seen Wound/Misc Culture Final 09/16/14- 1255 ML Organism 1 NORMAL ISABELL Quantity 1+ * ML - MAIN LAB ([facility]) . END OF REPORT * ML=Testing performed at Main Lab DEPARTMENT OF PATHOLOGY, [address] [place] [address] Naseem Martinez M.D. Director [facility] # [id number] 39 ADDITIONAL INFORMATION Analyte Specific Reagent: This test was developed and its performance characteristics determined by [facility]. It has not been cleared or approved by the U.S. Food and Drug Administration. 40 ADDITIONAL INFORMATION Laboratory developed test. Test Performed by: [facility] [place] [address] Piece Hand: Guanako Hanson II, M.D., Ph.D. 41 1URINE 42 24HR URINE JUG TV-3000 ML 43 1 SST 44 If is still suspected, please repeat test after 48 to 72 hours. . 45 Anion gap measurement may be of limited value in the presence of any alkalosis, especially in a combined acid base disorder. . 46 Note change in reference range as of 01/22/08. The change was based on recommendations from the [employer]. 47 Please note change in reference range effective 07 . 48 A metabolite of Naproxen, O-desmethylnaproxen, has been shown to interfere with the Jendrleopoldoik-[place] method for measuring total bilirubin. Samples from patients who have taken Naproxen have shown spurious elevation in total bilirubin levels. 49 New Reference Range and Interpretation effective 03/06/02 TnI (ng/ml) INTERPRETATION <0.06 ng/ml NOT SUPPORTIVE OF DIAGNOSIS OF DE 0.06 - 0.50 ng/ml INDETERMINATE: SUGGEST SERIAL STUDIES IF CLINICALLY INDICATED. > 0.5 ng/ml CONSISTENT WITH DIAGNOSIS OF DE . 50 The detection limit for ETHANOL is 10.0 mg/dl . Values less than 10.0 mg/dl cannot be accurately measured. . 51 PLEASE NOTE NEW REFERENCE RANGES. 52 THE URINE SPECIMEN WAS TESTED AT THE LISTED CUTOFFS: DRUG CLASS TEST LEVEL (NG/ML) AMPHETAMINES 300 BARBITUATES 200 BENZODIAZEPINE METABOLITES 200 COCAINE METABOLITES 300 CANNABINOIDS 25 OPIATES 200 PCP 25 THIS IS A SCREENING PROCEDURE. POSITIVE RESULTS ARE NOT CONFIRMED. SPECIMEN WAS RECEIVED WITHOUT CHAIN OF CUSTODY. RESULTS SHOULD BE USED FOR MEDICAL PURPOSES ONLY. . 53 FASTING 54 RESULT ANTOINE'D 55 RESULT ANTOINE'D 56 RESULT ANTOINE'D 57 FASTING; one sst 58 . Normally Menstruating Females: Follicular Phase: 1.9-2.5 Mid-Cycle Peak : 8.7-76.3 Luteal Phase : 0.5-16.9 ..............: <0.1-1.5 Postmenopausal........: 15.9-54.0 Contraceptives........: 0.7-5.6 Males (age 20-70 yrs).: 1.5-9.3 Males (age >70 yrs)...: 3.1-34.0 Children..............: 0.1-6.0 . 59 . Normally Menstruating Females: Follicular Phase: 2.5-10.2 Mid-Cycle Peak : 3.4-33.4 Luteal Phase : 1.5-9.1 ..............: <0.3 Postmenopausal........: 23.0-116.3 Males.................: 1.4-18.1 . 60 30 MINUTE 60 MINUTES POST-INJECTION 61 REFERENCE RANGE: AM 8.7-22.4 PM LESS THAN 10 . 62 TEST PERFORMED BY: [employer]. [address] [place] [address] 63 2 SST 64 . Normally Menstruating Females: Follicular Phase: 2.5-10.2 Mid-Cycle Peak : 3.4-33.4 Luteal Phase : 1.5-9.1 ..............: <0.3 Postmenopausal........: 23.0-116.3 Males.................: 1.4-18.1 . 65 . Normally Menstruating Females: Follicular Phase: 1.9-2.5 Mid-Cycle Peak : 8.7-76.3 Luteal Phase : 0.5-16.9 ..............: <0.1-1.5 Postmenopausal........: 15.9-54.0 Contraceptives........: 0.7-5.6 Males (age 20-70 yrs).: 1.5-9.3 Males (age >70 yrs)...: 3.1-34.0 Children..............: 0.1-6.0 . 66 1 SST TUBE 67 3HR GTT FAST SERUM FASTING GLUCOSE from [id number]. 68 REFERENCE RANGE: 20-50 MG/DL ABOVE FASTING 69 REFERENCE RANGE: 5-15 MG/DL ABOVE FASTING 70 REFERENCE RANGE: FASTING OR 10 MG/DL BELOW 71 NEUTRAL FATS PRESENT IN NORMAL AMOUNTS-SPLIT FATTY ACIDS PRESENT IN INCREASED AMOUNTS. 72 Follicular Phase: 1.0-18.0 mIU/ml Ovulatory Peak: 24.0-105.0mIU/ml Luteal Phase: 0.4-20.0 mIU/ml Post-Menopausal: 15.0-62.0 mIU/ml MALES: 2.0-12.0 mIU/ml . 73 Follicular Phase: 4.0-13.0 mIU/mL Ovulatory Peak: 5.0-22.0 mIU/mL Luteal Phase: 2.0-13.0 mIU/mL Post-Menopausal: 20.0-138.0mIU/mL MALE: 1.0-8.0 mIU/mL . Procedures Date CPT Code Description Status 07/10/2017 Mammogram Completed 07/05/2017 Mammogram Completed 06/21/2017 Mammogram Completed 05/21/2017 Colonoscopy Completed 01/28/2014 69152 Pulse Oximetry Completed 07/06/2013 92994 Pulse Oximetry Completed 10/02/2012 35697 Pulse Oximetry Completed 09/23/2012 49679 Pulse Oximetry Completed 06/20/2011 Mammogram Completed 12/12/2009 47264 Pulse Oximetry Completed 11/18/2009 Mammogram Completed 05/04/2008 Mammogram Completed Encounters Type Date Location Provider CPT E/M Dx Office Visit 09/02/2017 1:00p [facility] Jose Perry M.D. 60474 D72.819 E03.9 Office Visit 06/10/2017 3:00p [facility] Jose Perry M.D. 13261 L98.9 E03.9 Z12.39 Office Visit 11/27/2016 11:00a [facility] Jose Perry M.D. 36327 R10.811 K59.00 Office Visit 06/05/2016 9:50a [facility] Jose Perry M.D. 67206 N92.1 E03.9 Office Visit 12/22/2015 5:50p Main Office Jose Perry M.D. 82628 E06.3 Office Visit 12/07/2015 8:00a [facility] Jesika Johnson [facility] 64325 R22.1 R53.82 E06.3 Office Visit 09/14/2015 10:30a [facility] Jose Perry M.D. 47883 R53.82 L94.9 R22.1 Office Visit 04/07/2015 7:30p Main Office Jose Perry M.D. 71223 R53.82 R10.811 Office Visit 09/14/2014 11:20a [facility] Jose Perry M.D. 87163 709.9 Office Visit 08/26/2014 4:30p Main Office Jose Perry M.D. 39942 780.79 626.0 Office Visit 04/28/2014 3:00p [facility] Jose Perry M.D. 28298 386.11 V04.81 Office Visit 01/28/2014 6:15p Main Office Jose Perry M.D. 46726 466.0 Office Visit 07/15/2013 1:30p [facility] Jesika Johnson [facility] 90116 466.0 786.2 Office Visit 07/06/2013 2:20p [facility] Office Jose Perry M.D. 90813 466.0 Office Visit 03/30/2013 1:40p [facility] [facility] Jose Perry M.D. 51062 780.79 Office Visit 03/05/2013 6:00p Main Office Jose Perry M.D. 93794 781.0 784.0 V04.81 Office Visit 01/23/2013 10:15a [facility] [address] 461.9 784.0 Office Visit 10/02/2012 1:20p Main Office Jose Perry M.D. 32729 490 Office Visit 09/23/2012 11:20a [facility] [facility] Jose Perry M.D. 66336 490 Office Visit 08/25/2012 1:20p [facility] [facility] Jose Perry M.D. 50721 780.79 Office Visit 10/24/2011 10:20a [facility] [facility] Jose Perry M.D. 44463 723.1 Office Visit 06/12/2011 8:00a [facility] [facility] Jose Perry M.D. 06283 311 300.00 783.5 288.59 V58.69 Office Visit 01/08/2011 2:40p [facility] [facility] Jose Perry M.D. 52621 311 300.00 Office Visit 12/11/2010 3:40p [facility] [facility] Jose Perry M.D. 18830 311 300.00 Office Visit 07/03/2010 9:00a [facility] Jose Perry M.D. 46017 311 300.00 Office Visit 05/22/2010 8:50a [facility] [place] [facility] Jose Perry M.D. 99917 311 300.00 Office Visit 04/17/2010 9:10a [facility] [facility] Jose Perry M.D. 89652 311 300.00 Office Visit 03/22/2010 1:20p [facility] [facility] Jose Perry M.D. 85677 311 300.00 Office Visit 12/14/2009 11:40a [facility] Jose Perry M.D. 58450 786.2 Office Visit 12/12/2009 1:30p [facility] [place] [facility] Jose Perry M.D. 02046 311 300.00 460 Office Visit 11/07/2009 1:00p [facility] [place] [facility] Jose Perry M.D. 03273 244.9 311 300.00 780.79 V58.69 Office Visit 04/04/2009 8:00a [facility] [facility] Jose Perry M.D. 61053 244.9 311 300.00 280.9 Office Visit 12/20/2008 8:20a [facility] [facility] Jose Perry M.D. 77862 244.9 780.97 311 300.00 280.9 Office Visit 11/04/2008 1:00p Main Office Jose Perry M.D. 09159 780.97 311 300.00 280.9 244.9 Office Visit 09/27/2008 11:20a [facility] [facility] Jose Perry M.D. 48226 724.5 Office Visit 08/10/2008 10:00a [facility] Jose Perry M.D. 13002 311 300.00 477.8 626.9 V58.69 Office Visit 11/17/2007 1:30p [facility] [place] Office Jose Perry M.D. 52197 311 300.00 477.8 333.1 280.9 Office Visit 08/05/2007 9:00a Main Office DEYSI Slade 40031 V58.32 723.1 Office Visit 03/25/2007 10:10a Main Office Jose Perry M.D. 76413 311 300.00 333.1 477.8 719.47 Office Visit 10/22/2006 2:50p Main Office Jose Perry M.D. 06402 785.1 333.1 311 300.00 280.9 477.8 704.1 Office Visit 09/24/2006 2:20p Main Office Cara Rodrigez BROOK Kaplan 22286 786.05 Office Visit 09/05/2006 1:00p Main Office Jose Perry M.D. 51885 780.79 Office Visit 08/05/2006 2:50p [facility] Jose Perry M.D. 76870 333.1 Office Visit 05/21/2006 3:00p Main Office Jose Perry M.D. 13353 311 300.00 280.9 Office Visit 01/21/2006 8:00a [facility] Jose Perry M.D. 94991 311 300.00 477.8 381.81 V58.69 Office Visit 09/10/2005 4:10p [facility] [place] Office Jose Perry M.D. 08540 311 300.00 V41.1 Office Visit 06/19/2005 3:00p Main Office Jose Perry M.D. 92702 300.00 780.79 311 Office Visit 03/19/2005 2:00p [facility] Jose Perry M.D. 61282 311 V58.69 Office Visit 01/23/2005 11:20a Main Office Jose Perry M.D. 19807 692.9 Office Visit 09/28/2004 7:00p Main Office Jose Perry M.D. 34455 300.00 311 Office Visit 08/01/2004 3:00p Main Office Jose Perry M.D. 46333 300.00 311 239.2 V58.69 Office Visit 06/05/2004 1:20p [facility] Jose Perry M.D. 87665 300.4 Office Visit 08/11/2003 10:10a [facility] Jose Perry M.D. 46001 781.2 300.4 Office Visit 06/08/2003 1:00p Main Office Jose Perry M.D. 28754 280.9 780.79 300.4 Office Visit 01/19/2003 7:00p Main Office Jose Perry M.D. 99036 280.9 Office Visit 12/14/2002 2:00p Main Office Jose Perry M.D. 91568 780.79 783.21 300.4 Office Visit 04/20/2002 1:10p Main Office Jose Perry M.D. 67330 724.5 Office Visit 01/06/2002 2:00p Main Office Jose Perry M.D. 90745 Office Visit 03/18/2001 1:20p Main Office Jose Perry M.D. 27632 Plan of Care 11/21/2017 - Farhana Lanier, NPN95.0 Postmenopausal bleedingComments:Follow up with Dr. SolisN94.2 VaginismusComments:Please try pelvic floor physical therapy.N76.0 Acute vaginitisComments:Since your symptoms are improved we don't need to do more testing or treatment right now.
[2017-11-24 20:42] VITALS: BP 113/54
--- NOTE | 2017-11-24 22:09 | UC ---
Complaint Female HPI - HPI Summary HPI Summary: 52 y/o female presents to the urgent care c/o itching and vaginal discharge since yesterday - History Of Current Complaint Chief Complaint: UCGU Stated Complaint: ITCHINESS/PAIN IN GENTIALS Time Seen by Provider: 11/24/17 22:07 Hx Obtained From: Patient Pain Intensity: 0 - Allergies/Home Medications Allergies/Adverse Reactions: Allergies Allergy/AdvReac Type Severity Reaction Status Date / Time No Known Allergies Allergy Verified 11/24/17 20:43 Home Medications: Home Medications Acetaminophen TAB* [Tylenol TAB*] 975 mg PO Q6H PRN 11/24/17 [History Confirmed 11/24/17] Calcium Carbonate/Vitamin D3 [Calcium 600-Vit D3 500 Softgel] 1 cap PO DAILY [History Confirmed 11/24/17] Levothyroxine TAB* [Synthroid 100 MCG TAB*] 100 mcg PO DAILY 11/24/17 [History Confirmed 11/24/17] Omeprazole CAP* [Prilosec CAP* 20 MG] 20 mg PO DAILY PRN 11/24/17 [History Confirmed 11/24/17] Sertraline* [Zoloft*] 100 mg PO BEDTIME 11/24/17 [History Confirmed 11/24/17] buPROPion SR TAB* [Wellbutrin SR TAB*] 100 mg PO DAILY 11/24/17 [History Confirmed 11/24/17] busPIRone TAB* [Buspar TAB *] 15 mg PO TID 11/24/17 [History Confirmed 11/24/17] lamoTRIgine TAB(*) [Lamictal TAB(*)] 300 mg PO DAILY 11/24/17 [History Confirmed 11/24/17] PMH/Surg Hx/FS Hx/Imm Hx - Surgical History Surgical History: None - Social History Alcohol Use: None Substance Use Type: None Smoking Status (MU): Never Smoked Tobacco Physical Exam Vital Signs: Initial Vital Signs Temp 99.0 F 11/24/17 20:38 Pulse 69 11/24/17 20:38 Resp 14 11/24/17 20:38 BP 113/54 11/24/17 20:38 Pulse Ox 97 11/24/17 20:38 Discharge - Discharge Plan Referrals: No Primary Care Phys,NOPCP [Primary Care Provider] -
[2017-11-24] MEDS ORDERED: Fluconazole 100 MG TAB* TAB PO ONE (22:22)
== END 2017-11-24 22:30 | disposition home or self-care (01) ==
LOC: UCEAST 20:30 → MERGE 20:30 → UCEAST 22:30
DX: N89.8 Other specified noninflammatory disorders of vagina (principal)
CPT/HCPCS: 99212; A9270-GY; G0463